=== PATIENT | female | born 1985 | race Caucasian/White ===

== ENCOUNTER 2020-09-13 11:40 | Outpatient (REF) | payer OTHER, SELFPAY ==
[2020-09-13 14:01] LABS: MANUAL DIFF FLAG NO
[2020-09-13 14:12] LABS: Basophils Absolute Auto 0.1 X10*3/uL (0.0-0.2); Basophils Percent Auto 0.6 % (0-2); Eosinophils Absolute Auto 0.3 X10*3/uL (0.0-0.4); Eosinophils Percent Auto 3.2 % (0-4); Hematocrit 42.2 % (37-47); Hemoglobin 13.8 g/dl (12.0-16.0); Imm Gran Abs Auto 0.03 X10*3/uL (0.00-0.03); Imm Gran Pct Auto 0.3 % (0.0-0.4); Lymphocytes Absolute Auto 2.8 X10*3/uL (1.2-4.9); Lymphocytes Percent Auto 30.3 % (20-40); Mean Corpuscular HGB Conc 32.7 g/dl (31.0-35.0); Mean Corpuscular Volume 88.7 fL (80-98); Mean Platelet Volume 10.7 fL (9.4-12.3); Monocytes Absolute Auto 0.6 X10*3/uL (0.1-1.2); Monocytes Percent Auto 6.5 % (2-11); Neutrophils Absolute Auto 5.5 X10*3/uL (2.0-8.3); Neutrophils Percent Auto 59.1 % (45-73); Platelet Count 380 X10*3/uL (160-400); Red Blood Count 4.76 X10*6/uL (4.20-5.50); Red Cell Distribution Width 14.4 % (11.0-16.0); White Blood Count 9.3 X10*3/uL (4.8-10.8)
[2020-09-13 14:41] LABS: Alanine Aminotransferase 14 U/L (0-31); Albumin Level 4.1 g/dL (3.5-5.0); Alkaline Phosphatase 74 U/L (39-117); Anion Gap 14 (12-20); Aspartate Amino Transferase 16 U/L (5-31); Bilirubin Direct < 0.2 mg/dL (0.0-0.5); Bilirubin Total 0.2 mg/dL (0.0-1.0); Blood Urea Nitrogen 14 mg/dL (9-16); Calcium 9.1 mg/dL (8.4-10.2); Carbon Dioxide 25 mmol/L (22-29); Chloride 106 mmol/L (96-108); Estimated Glomerular Filt Rate > 60; Glucose Random 77 mg/dL (60-115); Potassium 4.2 mmol/L (3.3-5.1); Sodium 141 mmol/L (135-145); Total Protein 7.1 g/dL (6.5-8.0)
== END 2020-09-13 11:41 | disposition home or self-care (01) ==
LOC: HO.HMGCLDS 11:40
PROVIDERS: PCP Internal Medicine; Visit Provider Internal Medicine
DX: E66.01 Morbid (severe) obesity due to excess calories (principal); Z68.41 Body mass index [BMI] 40.0-44.9, adult
CPT/HCPCS: 36415; 80048; 80076; 85025

== ENCOUNTER 2021-01-17 08:55 | Outpatient (REF) | payer OTHER, SELFPAY ==
[2021-01-17 11:29] LABS: MANUAL DIFF FLAG NO
[2021-01-17 11:38] LABS: Basophils Absolute Auto 0.1 X10*3/uL (0.0-0.2); Basophils Percent Auto 0.7 % (0-2); Eosinophils Absolute Auto 0.3 X10*3/uL (0.0-0.4); Eosinophils Percent Auto 3.6 % (0-4); Hematocrit 43.1 % (37-47); Hemoglobin 13.7 g/dl (12.0-16.0); Imm Gran Abs Auto 0.04 X10*3/uL (0.00-0.03); Imm Gran Pct Auto 0.4 % (0.0-0.4); Lymphocytes Absolute Auto 2.8 X10*3/uL (1.2-4.9); Lymphocytes Percent Auto 30.6 % (20-40); Mean Corpuscular HGB Conc 31.8 g/dl (31.0-35.0); Mean Corpuscular Hemoglobin 28.2 pg (27.0-33.0); Mean Corpuscular Volume 88.7 fL (80-98); Mean Platelet Volume 10.4 fL (9.4-12.3); Monocytes Absolute Auto 0.6 X10*3/uL (0.1-1.2); Monocytes Percent Auto 6.8 % (2-11); Neutrophils Absolute Auto 5.3 X10*3/uL (2.0-8.3); Neutrophils Percent Auto 57.9 % (45-73); Platelet Count 330 X10*3/uL (160-400); Red Blood Count 4.86 X10*6/uL (4.20-5.50); Red Cell Distribution Width 14.2 % (11.0-16.0); White Blood Count 9.1 X10*3/uL (4.8-10.8)
[2021-01-17 12:04] LABS: Alanine Aminotransferase 14 U/L (0-31); Albumin Level 4.2 g/dL (3.5-5.0); Alkaline Phosphatase 71 U/L (39-117); Anion Gap 13 (12-20); Aspartate Amino Transferase 14 U/L (5-31); Bilirubin Total 0.3 mg/dL (0.0-1.0); Blood Urea Nitrogen 14 mg/dL (9-16); Calcium 9.3 mg/dL (8.4-10.2); Carbon Dioxide 24 mmol/L (22-29); Chloride 108 mmol/L (96-108); Cholesterol 204 mg/dL; Estimated Glomerular Filt Rate > 60; Glucose Fasting 81 mg/dL (60-99); HDL Cholesterol 63 mg/dL; LDL Cholesterol Calculated 107 mg/dl; Potassium 4.7 mmol/L (3.3-5.1); Sodium 140 mmol/L (135-145); Total Protein 7.2 g/dL (6.5-8.0); Triglycerides 171 mg/dL
[2021-01-17 12:14] LABS: TSH reflex Free T4 1.63 uIU/mL (0.32-4.0)
[2021-01-18 15:03] LABS: Vitamin B12 271 pg/mL (200-900)
[2021-01-22 16:01] LABS: Vitamin D 25-OH, D2 <4 ng/mL; Vitamin D 25-OH, D3 35 ng/mL; Vitamin D 25-OH, Total 35 ng/mL (30-100)
== END 2021-01-17 08:56 | disposition home or self-care (01) ==
LOC: HO.HMGCLDS 08:55
PROVIDERS: PCP Internal Medicine; Visit Provider Internal Medicine
DX: E66.01 Morbid (severe) obesity due to excess calories (principal); G56.03 Carpal tunnel syndrome, bilateral upper limbs; M54.5 Low back pain
CPT/HCPCS: 36415; 80053; 80061; 82306; 82607; 84443; 85025

== ENCOUNTER → 2021-01-21 08:27 | Outpatient (BNVA) | payer OTHER, SELFPAY | PROVIDERS: PCP Internal Medicine; Visit Provider Physician Assistant ==

== ENCOUNTER → 2021-01-29 08:02 | Outpatient (BNVA) | payer OTHER, SELFPAY | PROVIDERS: PCP Internal Medicine; Visit Provider Surgery ==

== ENCOUNTER 2021-02-11 09:56 | Outpatient (REF) | payer OTHER, SELFPAY ==
--- NOTE | ~2021-02-11 | XR_ITS ---
EXAMINATION: XR CHEST CLINICAL INFORMATION: Obesity COMPARISON: None TECHNIQUE: 2 views of the chest were obtained. FINDINGS: No significant abnormality is noted involving the heart, lungs, mediastinum, bony thorax or soft tissues. XR/XR chest 2V IMPRESSION: Unremarkable examination.
[2021-02-11 10:50] LABS: MANUAL DIFF FLAG NO
[2021-02-11 10:58] LABS: Basophils Percent Auto 0.5 % (0-2); Eosinophils Absolute Auto 0.2 X10*3/uL (0.0-0.4); Eosinophils Percent Auto 2.7 % (0-4); Hematocrit 42.1 % (37-47); Hemoglobin 13.6 g/dl (12.0-16.0); Imm Gran Abs Auto 0.02 X10*3/uL (0.00-0.03); Imm Gran Pct Auto 0.3 % (0.0-0.4); Lymphocytes Absolute Auto 2.3 X10*3/uL (1.2-4.9); Mean Corpuscular HGB Conc 32.3 g/dl (31.0-35.0); Mean Corpuscular Hemoglobin 28.2 pg (27.0-33.0); Mean Corpuscular Volume 87.3 fL (80-98); Mean Platelet Volume 10.2 fL (9.4-12.3); Monocytes Absolute Auto 0.5 X10*3/uL (0.1-1.2); Neutrophils Absolute Auto 4.7 X10*3/uL (2.0-8.3); Neutrophils Percent Auto 60.5 % (45-73); Platelet Count 306 X10*3/uL (160-400); Red Blood Count 4.82 X10*6/uL (4.20-5.50); Red Cell Distribution Width 13.7 % (11.0-16.0); White Blood Count 7.8 X10*3/uL (4.8-10.8)
--- NOTE | 2021-02-11 11:25 | ECG_ITS ---
Test Reason : MORBID OBESITY Blood Pressure : / mmHG Vent. Rate : 076 BPM Atrial Rate : 076 BPM P-R Int : 104 ms QRS Dur : 084 ms QT Int : 398 ms P-R-T Axes : 036 034 001 degrees QTc Int : 447 ms Sinus rhythm with short [place] Nonspecific ST abnormality Abnormal ECG No previous ECGs available Referred By: Jak March Electronically Signed By:JERRY BIGGS
[2021-02-11 11:31] LABS: Alanine Aminotransferase 25 U/L (0-31); Albumin Level 4.3 g/dL (3.5-5.0); Alkaline Phosphatase 62 U/L (39-117); Anion Gap 12 (12-20); Aspartate Amino Transferase 20 U/L (5-31); Bilirubin Total 0.3 mg/dL (0.0-1.0); Blood Urea Nitrogen 11 mg/dL (9-16); C Reactive Protein 2.72 mg/dL (< or = 0.50); Calcium 9.4 mg/dL (8.4-10.2); Carbon Dioxide 24 mmol/L (22-29); Chloride 110 mmol/L (96-108); Cholesterol 168 mg/dL; Estimated Glomerular Filt Rate > 60; Glucose Random 80 mg/dL (60-115); HDL Cholesterol 54 mg/dL; Iron 107 mcg/dL (30-160); LDL Cholesterol Calculated 99 mg/dl; Percent Iron Saturation 22 % (15-50); Potassium 4.3 mmol/L (3.3-5.1); Sodium 142 mmol/L (135-145); Total Iron Binding Capacity 486 mcg/dL (228-428); Total Protein 7.1 g/dL (6.5-8.0); Triglycerides 78 mg/dL; Unsaturated Iron Binding 379 ug/dL
[2021-02-11 11:43] LABS: Ferritin 34 ng/mL (10-122); TSH reflex Free T4 0.84 uIU/mL (0.32-4.0); Vitamin D 25-OH Total 37.8 ng/mL (>30)
[2021-02-11 12:18] LABS: Folate 16.6 ng/mL (> or = 4.0); Vitamin B12 334 pg/mL (200-900)
[2021-02-11 13:20] LABS: Estimated Average Glucose 97 mg/dL
[2021-02-13 14:01] LABS: H Pylori Breath Test NOT DETECTED (NOT DETECTED)
[2021-02-13 21:17] LABS: Zinc 68 mcg/dL (60-130)
[2021-02-14 23:16] LABS: Insulin Level Total 9.8 uIU/mL
[2021-02-15 10:06] LABS: Vitamin B1 9 nmol/L (8-30)
[2021-02-16 06:31] LABS: Calcium (PTHI) 9.4 mg/dL (8.6-10.2); PTHI 58 pg/mL (14-64)
[2021-02-18 20:22] LABS: Vitamin A 63 mcg/dL (38-98)
== END 2021-02-11 09:57 | disposition home or self-care (01) ==
LOC: HO.LAB 09:56
PROVIDERS: PCP Internal Medicine; Visit Provider Surgery
DX: Z01.818 Encounter for other preprocedural examination (principal); E66.01 Morbid (severe) obesity due to excess calories; K21.9 Gastro-esophageal reflux disease without esophagitis
CPT/HCPCS: 36415; 71046; 80053; 80061; 82306; 82607; 82728; 82746; 83013; 83036; 83525; 83540; 83970; 84425; 84443; 84590; 84630; 85025; 86140; 93005

== ENCOUNTER → 2021-02-21 08:12 | Outpatient (BNVA) | payer OTHER, SELFPAY | PROVIDERS: PCP Internal Medicine; Visit Provider Surgery ==

== ENCOUNTER → 2021-02-27 08:13 | Outpatient (REF) | payer OTHER, SELFPAY ==
--- NOTE | ~2021-02-27 | FL_ITS ---
EXAMINATION: XR GI SERIES CLINICAL INFORMATION: Morbid/severe obesity due to excess calories. COMPARISON: None TECHNIQUE: Routine upper GI air-contrast study. FINDINGS: Following oral administration of thick barium and effervescent granules there is normal propagation of bolus from the oral cavity through the pharynx, esophagus into stomach without any evidence of obstruction, narrowing or stricture. The course, caliber and peristalsis of the stomach and the duodenum is normal. The mucosal pattern of stomach and the duodenum is normal. FLUOROSCOPY TIME: 1.4 minutes. DOSE AREA PRODUCT: 33.014 uGy-m2 (microgray-meter squared). FL/FL upper GI series IMPRESSION: Unremarkable upper GI air-contrast study.
--- NOTE | ~2021-02-27 | US_ITS ---
EXAMINATION: US COMPLETE ABDOMEN WITH LIVER ELASTOGRAPHY CLINICAL INFORMATION: Obesity COMPARISON: None. TECHNIQUE: Real-time imaging of the abdominal viscera. Noninvasive ultrasound liver fibrosis assessment is performed using Radha ElastPQ point quantification shear wave elastography (pSWE) with a C5-2 MHz transducer. Multiple elastography samples are obtained. FINDINGS: PANCREAS: Normal. ABDOMINAL AORTA: Not well visualized due to bowel gas. INFERIOR VENA CAVA: Not well visualized due to bowel gas. LIVER: Normal. The liver demonstrates normal size, contour and echogenicity. No focal lesion or intrahepatic biliary duct dilatation. The right lobe measures 14 cm in length. The left lobe measures 9 cm in length. Portal flow is normal/hepatopedal Shear wave liver elastography median stiffness is 1.2 m/s (reference: normal median stiffness is 1.3 m/s or less). IQR/median stiffness to assess sampling precision is 0.13 (reference: good quality data set is IQR/median stiffness of 0.15 or less). GALLBLADDER: Surgically removed. COMMON BILE DUCT: Normal in caliber measuring 0.3 cm in diameter. RIGHT KIDNEY: Normal. No hydronephrosis. No renal calculi or focal parenchymal lesions. The kidney measures 10 cm in maximum dimension. LEFT KIDNEY: Normal. No hydronephrosis. No renal calculi or focal parenchymal lesions. The kidney measures 10 cm in maximum dimension. SPLEEN: Normal. The spleen measures 9 cm in maximum dimension. FREE FLUID: None. US/US abdomen comp w elastography IMPRESSION: 1. Impression: Normal-appearing liver. Limited visualization of the aorta and IVC. 2. Liver elastography: Adequate liver sampling. Normal liver stiffness. REFERENCE: Society of Radiologists in Ultrasound Liver Stiffness Thresholds (2020): LIVER STIFFNESS THRESHOLDS: *Liver Stiffness equal or less than 1.3 m/s: High probability of being normal. *Liver Stiffness less than 1.7 m/s: In the absence of other known clinical signs, rules out compensated advanced chronic liver disease. *Liver Stiffness 1.7-2.1 m/s: Suggestive of compensated advanced chronic liver disease but need further test for confirmation. *Liver Stiffness over 2.1 m/s: Rules in compensated advanced chronic liver disease. *Liver Stiffness over 2.4 m/s: Suggestive of clinically significant portal hypertension. QUALITY OF DATA SET: *IQR/Median value equal or less than 0.15 implies a quality data set. *IQR/Median value over 0.15 implies a poor quality data set. SIGNIFICANT CHANGE FROM PRIOR EXAM: Significant change if liver stiffness measurement is 10% or greater from prior exam. OTHER CONSIDERATIONS: The stage of liver fibrosis may be overestimated in the setting of acute hepatitis, liver inflammation, elevated liver function tests, hepatic vascular congestion, obstructive cholestasis, non-fasting state, and infiltrative diseases such as amyloidosis and lymphoma. In some patients with NAFLD, the liver stiffness thresholds for compensated advanced chronic liver disease may be lower. In causes other than viral hepatitis and NAFLD, liver stiffness thresholds are not well established.
--- NOTE | 2021-02-27 08:16 | CA_ITS ---
Acquisition Time: 2021-02-27 08:15:46 Total Exercise Time: 00:09:00 Test Indications: Abnormal ECG Medications: BUPROPION LORAZAPAM BC Protocol: KLARISSA Max HR: 171 BPM 91% of Pred: 186 BPM Max BP: 130/080 mmHG Max Work Load: 10.1 METS Exercise stress test with exercise 9 min of Klarissa protocol, without anginal symptoms, without arrythmia, with normotensive response to exercise, without EKG changes meeting criteria for ischemia. Test reviewed with Dr Parker Referred By: Jak March Overread By: ARNULFO ZUNIGA
== END ==
LOC: HO.CARD 08:13
PROVIDERS: Visit Provider Surgery
DX: Z01.818 Encounter for other preprocedural examination (principal); E66.01 Morbid (severe) obesity due to excess calories; K21.9 Gastro-esophageal reflux disease without esophagitis; R06.02 Shortness of breath; I10 Essential (primary) hypertension; R94.31 Abnormal electrocardiogram [ECG] [EKG]
CPT/HCPCS: 74240; 76705; 76981; 93017

== ENCOUNTER → 2021-02-28 08:09 | Outpatient (BNVA) | payer OTHER, SELFPAY | PROVIDERS: PCP Internal Medicine; Visit Provider Dietitian, Registered | DX: E66.9 Obesity, unspecified (principal) | CPT/HCPCS: 97802 ==

== ENCOUNTER → 2021-03-19 08:11 | Outpatient (BNVA) | payer OTHER, SELFPAY | PROVIDERS: PCP Internal Medicine; Visit Provider Surgery ==

== ENCOUNTER → 2021-04-16 10:23 | Outpatient (BNVA) | payer OTHER, SELFPAY | PROVIDERS: PCP Internal Medicine; Visit Provider Surgery ==

== ENCOUNTER → 2021-04-25 08:10 | Outpatient (BNVA) | payer OTHER, SELFPAY | PROVIDERS: PCP Internal Medicine; Referring Provider Internal Medicine; Visit Provider Physician Assistant ==

== ENCOUNTER → 2021-05-07 08:03 | Outpatient (BNVA) | payer OTHER, SELFPAY | PROVIDERS: PCP Internal Medicine; Visit Provider Surgery ==

== ENCOUNTER → 2021-05-16 12:34 | Outpatient (BNVA) | payer OTHER, SELFPAY | PROVIDERS: PCP Internal Medicine; Visit Provider Surgery | DX: E66.01 Morbid (severe) obesity due to excess calories (principal); Z68.41 Body mass index [BMI] 40.0-44.9, adult; Z68.36 Body mass index [BMI] 36.0-36.9, adult ==

== ENCOUNTER 2021-05-22 08:32 | Day surgery (SDC) | payer OTHER, SELFPAY ==
[2021-05-13 11:03] VITALS: BMI 36.7
[2021-05-17 09:15] LABS: MANUAL DIFF FLAG NO
[2021-05-17 10:12] LABS: Basophils Absolute Auto 0.1 X10*3/uL (0.0-0.2); Basophils Percent Auto 0.7 % (0-2); Eosinophils Absolute Auto 0.2 X10*3/uL (0.0-0.4); Eosinophils Percent Auto 2.2 % (0-4); Hematocrit 44.6 % (37.0-47.0); Imm Gran Abs Auto 0.03 X10*3/uL (0.00-0.03); Imm Gran Pct Auto 0.4 % (0.0-0.4); Lymphocytes Absolute Auto 1.9 X10*3/uL (1.2-4.9); Lymphocytes Percent Auto 28.1 % (20-40); Mean Corpuscular HGB Conc 33.6 g/dl (31.0-35.0); Mean Corpuscular Hemoglobin 29.4 pg (27.0-33.0); Mean Corpuscular Volume 87.5 fL (80.0-98.0); Mean Platelet Volume 10.6 fL (9.4-12.3); Monocytes Absolute Auto 0.5 X10*3/uL (0.1-1.2); Monocytes Percent Auto 7.4 % (2-11); Neutrophils Absolute Auto 4.1 x10*3/uL (2.0-8.3); Neutrophils Percent Auto 61.2 % (45-73); Platelet Count 333 X10*3/uL (160-400); Red Cell Distribution Width 13.4 % (11.0-16.0); White Blood Count 6.7 X10*3/uL (4.8-10.8)
[2021-05-17 10:44] LABS: Estimated Average Glucose 103 mg/dL; Hemoglobin A1c % 5.2 %
[2021-05-17 10:46] LABS: Prothrombin Time 11.5 SEC (9.9-13.0)
[2021-05-17 10:49] LABS: Partial Thromboplastin Time 35.6 SEC (24.1-38.0)
[2021-05-17 11:02] LABS: Alanine Aminotransferase 20 U/L (0-31); Albumin Level 4.3 g/dL (3.5-5.0); Alkaline Phosphatase 67 U/L (39-117); Anion Gap 14 (12-20); Aspartate Amino Transferase 16 U/L (5-31); Bilirubin Total 0.3 mg/dL (0.0-1.0); Blood Urea Nitrogen 14 mg/dL (9-16); C Reactive Protein 2.82 mg/dL (< or = 0.50); Calcium 9.6 mg/dL (8.4-10.2); Carbon Dioxide 25 mmol/L (22-29); Chloride 106 mmol/L (96-108); Cholesterol 190 mg/dL; Estimated Glomerular Filt Rate > 60; Glucose Random 86 mg/dL (60-115); HDL Cholesterol 51 mg/dL; LDL Cholesterol Calculated 125 mg/dl; Potassium 4.6 mmol/L (3.3-5.1); Sodium 140 mmol/L (135-145); Total Protein 7.2 g/dL (6.5-8.0); Triglycerides 72 mg/dL
[2021-05-17 11:10] LABS: Insulin 10 uU/mL (2-29); TSH reflex Free T4 0.76 uIU/mL (0.32-4.0)
--- NOTE | 2021-05-17 20:32 | P.HPSUR_ITS ---
Pre-Procedural Eval Section A Date of Service: 05/17/21 The patient is an INPATIENT: No The History & Physical has been completed within 30 days and I have reviewed it.: Yes Section B Chief Complaint: obesity Relevant Family History (Specify if Yes): No Relevant Social History: None Present Medications: None Medical History: No relevant PMH History of Previous Operations: No relevant previous surgery Allergies: Allergies Allergy/AdvReac Type Severity Reaction Status Date / Time egg Allergy Unknown Lump in Verified 05/16/21 12:37 Throa t seasonal Allergy Unknown Runny Uncoded 05/16/21 12:37 Nose, Itchy Eyes Review of Systems Sugical H&P ROS: Negative: Constitution, Cardiovascular, Respiratory, Neurological, Psychiatric, Hem-Onc, Allergic/Immunologic, Gastrointestinal, Genitourinary, Musculoskeletal, Integumentary, Endocrine and Eyes/Ears/Nose/Throat Exam Surgical H&P Exam: Normal: HEENT, Normal: Heart, Normal: Lungs, Normal: Extrem ities, Normal: Abdomen, Normal: Skin and Normal: Neurological Plan Diagnosis/Plan: Unchanged I have reviewed the history and physical and performed a pertinent physical examination on my patient. No changes have occurred unless specified.
--- NOTE | 2021-05-21 09:49 | P.CONAN_ITS ---
Documented by User: Arlene Wilson NP 05/21/21 09:51 HPI - Anesthesia Eval Consult details Narrative: 35yo F for Gastrectomy Sleeve,EGD,possible diaphragmatic hernia,possible ventral hernia,possible open PMFSH Active Problems Active Problems: All Active Problems (Updated 05/16/21 @ 12:34 by Jak March MD) BMI 36.0-36.9,adult (Acute) Uses control (Acute) Morbid obesity due to excess calories (Acute) Carpal tunnel syndrome on both sides (Acute) Lower back pain (Acute) Binge eating disorder (Acute) Other specified eating disorder (Acute) Abnormal EKG (Acute) Vitamin B12 deficiency (Acute) BMI 38.0-38.9,adult (Acute) BMI 37.0-37.9, adult (Acute) Nausea (Acute) BMI 35.0-35.9,adult (Acute) Back pain (Acute) Anxiety (Acute) GERD (gastroesophageal reflux disease) (Acute) Depression (Acute) Morbid obesity (Acute) Anxiety, generalized (Acute) Obesity (Acute) Past Medical History Medical History (Updated 05/16/21 @ 12:34 by Jak March MD) Anxiety Back pain Depression GERD (gastroesophageal reflux disease) Morbid obesity Family History Family History (Updated 01/21/21 @ 08:45 by ANNIKA Hurtado) Mother Spinal stenosis Ovarian cancer Father No problems noted. Brother No problems noted. Sister No problems noted. Son No problems noted. Daughter No problems noted. Other Mental health disorder Substance use disorder Surgical History Surgical History Hx of cholecystectomy Hx of wisdom tooth extraction Social History Social History (Updated 01/29/21 @ 08:45 by ANNIKA Hurtado) Housing: Apartment Are you a primary career technology teacher to a significant other at home: No Do you presently have visiting nurse or other home services: No Alcohol intake: current Alcohol intake frequency: holidays/special occasions only Patient Tobacco Use Status: Never used Tobacco Second Hand Smoke Exposure: Yes Use of substances other than those prescribed or required for medical reasons: No Are you DNR?: No Advance Directives: No Advance Directives Information Provided: Yes (Mailed to patient w/ pre-op instructions) Advance Directives on File: No Recently lost weight without trying: No How much weight loss: 14-23 pounds Eating poorly because of decreased appetite: No Nutrition screen score: 2 Nutrition Risks: No Nutritional Risk Patient : No FDLMP: due 05/14/21 : No Current occupational status: employed Meds Allergies Allergy/AdvReac Type Severity Reaction Status Date / Time egg Allergy Unknown Lump in Verified 05/22/21 08:48 Throa t seasonal Allergy Unknown Runny Uncoded 05/16/21 12:37 Nose, Itchy Eyes Home Medications Medication Instructions Recorded Confirmed Last Taken Type lorazepam 0.5 mg tablet 0.5 mg PO DAILY PRN 03/15/20 05/16/21 05/22/21 08:00 History norethindrone acetate 1.5 1 tab PO DAILY 03/15/20 05/16/21 Unknown History mg-ethinyl estradiol 30 mcg tablet bupropion HCl 150 mg 24 hr tablet, 1 tab PO DAILY 05/13/21 05/16/21 05/22/21 08:00 History extended release cetirizine 10 mg tablet (Zyrtec) 10 mg PO DAILY PRN 05/13/21 05/16/21 Unknown History Exam Exam Date and Time: May 21, 2021 0949 Height,Weight and Vital Signs: Height 4 ft 11 in Weight 82.554 kg Pertinent Lab Results Pertinent Lab Results: Laboratory Tests 05/17/21 05/17/21 05/17/21 09:09 09:09 09:09 WBC 6.7 RBC 5.10 Hgb 15.0 Hct 44.6 MCV 87.5 MCH 29.4 MCHC 33.6 RDW 13.4 Plt Count 333 MPV 10.6 Immature Gran % (Auto) 0.4 Neut % (Auto) 61.2 Lymph % (Auto) 28.1 Sherman % (Auto) 7.4 Eos % (Auto) 2.2 Baso % (Auto) 0.7 Lymph # (Auto) 1.9 Sherman # (Auto) 0.5 Eos # (Auto) 0.2 Baso # (Auto) 0.1 Abs Immat Gran (auto) 0.03 Absolute Neuts (auto) 4.1 Absolute Nucleated RBC 0.000 Nucleated RBC % (auto) 0.0 PT 11.5 INR 1.0 APTT 35.6 Sodium 140 Potassium 4.6 Chloride 106 Carbon Dioxide 25 Anion Gap 14 BUN 14 Creatinine 0.81 Estim Creat Clear Calc 91.0 Estimated GFR > 60 Random Glucose 86 Estimat Average Glucose Hemoglobin A1c % Insulin Level 10 Calcium 9.6 Total Bilirubin 0.3 AST 16 ALT 20 Alkaline Phosphatase 67 C-Reactive Protein 2.82 H Total Protein 7.2 Albumin 4.3 Triglycerides 72 Cholesterol 190 LDL Cholesterol, Calc 125 HDL Cholesterol 51 TSH 0.76 Blood Type Antibody Screen 05/17/21 05/17/21 09:09 09:09 WBC RBC Hgb Hct MCV MCH MCHC RDW Plt Count MPV Immature Gran % (Auto) Neut % (Auto) Lymph % (Auto) Sherman % (Auto) Eos % (Auto) Baso % (Auto) Lymph # (Auto) Sherman # (Auto) Eos # (Auto) Baso # (Auto) Abs Immat Gran (auto) Absolute Neuts (auto) Absolute Nucleated RBC Nucleated RBC % (auto) PT INR APTT Sodium Potassium Chloride Carbon Dioxide Anion Gap BUN Creatinine Estim Creat Clear Calc Estimated GFR Random Glucose Estimat Average Glucose 103 Hemoglobin A1c % 5.2 Insulin Level Calcium Total Bilirubin AST ALT Alkaline Phosphatase C-Reactive Protein Total Protein Albumin Triglycerides Cholesterol LDL Cholesterol, Calc HDL Cholesterol TSH Blood Type A Positive Antibody Screen NEGATIVE Narrative Narrative: EKG 02/2021 Vent. Rate : 076 BPM ? ? Atrial Rate : 076 BPM ?? P-R Int : 104 ms? QRS Dur : 084 ms ? ? QT Int : 398 ms ? ? ? P-R-T Axes : 036 034 001 degrees ?? QTc Int : 447 ms ? Sinus rhythm with short NC Nonspecific ST abnormality Abnormal ECG No previous ECGs available Exercise Stress 02/2021 Protocol: MICHAEL ? Max HR: 171 BPM? 91% of? Pred: 186 BPM Max BP: 130/080 mmHG Max Work Load: 10.1 METS ? Exercise stress test with exercise 9 min of Michael protocol, without anginal ?symptoms, without arrythmia, with normotensive response to exercise, without ?EKG changes meeting criteria for ischemia. Test reviewed with Dr Parker Assessment and Plan Assessment Anesthesia Assessment: Chart Reviewed Documented by User: Anna Boston MD 05/22/21 09:41 HPI - Anesthesia Eval Consult details Narrative: 35yo F for Gastrectomy Sleeve,EGD,possible diaphragmatic hernia,possible ventral hernia,possible open Egg allergy confirmed. Will induce with etomidate PMFSH Active Problems Active Problems: All Active Problems (Updated 05/16/21 @ 12:34 by Jak March MD) BMI 36.0-36.9,adult (Acute) Uses control (Acute) Morbid obesity due to excess calories (Acute) Carpal tunnel syndrome on both sides (Acute) Lower back pain (Acute) Binge eating disorder (Acute) Other specified eating disorder (Acute) Abnormal EKG (Acute) Vitamin B12 deficiency (Acute) BMI 38.0-38.9,adult (Acute) BMI 37.0-37.9, adult (Acute) Nausea (Acute) BMI 35.0-35.9,adult (Acute) Anxiety (Acute) GERD (gastroesophageal reflux disease) (Acute) Depression (Acute) Denies h/o SVITLANA Past Medical History Medical History (Updated 05/16/21 @ 12:34 by Jak March MD) Anxiety Back pain Depression GERD (gastroesophageal reflux disease) Morbid obesity Family History Family History (Updated 01/21/21 @ 08:45 by ANNIKA Hurtado) Mother Spinal stenosis Ovarian cancer Father No problems noted. Brother No problems noted. Sister No problems noted. Son No problems noted. Daughter No problems noted. Other Mental health disorder Substance use disorder Family history of problems with anesthesia: No Surgical History Surgical History Hx of cholecystectomy Hx of wisdom tooth extraction History of Problems with Anesthesia: No Social History Social History (Updated 01/29/21 @ 08:45 by ANNIKA Hurtado) Housing: Apartment Are you a primary career technology teacher to a significant other at home: No Do you presently have visiting nurse or other home services: No Alcohol intake: current Alcohol intake frequency: holidays/special occasions only Patient Tobacco Use Status: Never used Tobacco Second Hand Smoke Exposure: Yes Use of substances other than those prescribed or required for medical reasons: No Are you DNR?: No Advance Directives: No Advance Directives Information Provided: Yes (Mailed to patient w/ pre-op instructions) Advance Directives on File: No Recently lost weight without trying: No How much weight loss: 14-23 pounds Eating poorly because of decreased appetite: No Nutrition screen score: 2 Nutrition Risks: No Nutritional Risk Patient : No FDLMP: due 05/14/21 : No Current occupational status: employed Meds Allergies Allergy/AdvReac Type Severity Reaction Status Date / Time egg Allergy Unknown Lump in Verified 05/22/21 08:48 Throa t seasonal Allergy Unknown Runny Uncoded 05/16/21 12:37 Nose, Itchy Eyes Home Medications Medication Instructions Recorded Confirmed Last Taken Type lorazepam 0.5 mg tablet 0.5 mg PO DAILY PRN 03/15/20 05/16/21 05/22/21 08:00 History norethindrone acetate 1.5 1 tab PO DAILY 03/15/20 05/16/21 Unknown History mg-ethinyl estradiol 30 mcg tablet bupropion HCl 150 mg 24 hr tablet, 1 tab PO DAILY 05/13/21 05/16/21 05/22/21 08:00 History extended release cetirizine 10 mg tablet (Zyrtec) 10 mg PO DAILY PRN 05/13/21 05/16/21 Unknown History Exam Height,Weight and Vital Signs: Height 4 ft 11 in Weight 82.554 kg Vital Signs Temp Pulse Resp BP Pulse Ox 05/22/21 08:54 98.4 F 118 H 16 106/81 98 Pertinent Lab Results Pertinent Lab Results: Laboratory Tests 05/17/21 05/17/21 05/17/21 09:09 09:09 09:09 WBC 6.7 RBC 5.10 Hgb 15.0 Hct 44.6 MCV 87.5 MCH 29.4 MCHC 33.6 RDW 13.4 Plt Count 333 MPV 10.6 Immature Gran % (Auto) 0.4 Neut % (Auto) 61.2 Lymph % (Auto) 28.1 Sherman % (Auto) 7.4 Eos % (Auto) 2.2 Baso % (Auto) 0.7 Lymph # (Auto) 1.9 Sherman # (Auto) 0.5 Eos # (Auto) 0.2 Baso # (Auto) 0.1 Abs Immat Gran (auto) 0.03 Absolute Neuts (auto) 4.1 Absolute Nucleated RBC 0.000 Nucleated RBC % (auto) 0.0 PT 11.5 INR 1.0 APTT 35.6 Sodium 140 Potassium 4.6 Chloride 106 Carbon Dioxide 25 Anion Gap 14 BUN 14 Creatinine 0.81 Estim Creat Clear Calc 91.0 Estimated GFR > 60 Random Glucose 86 Estimat Average Glucose Hemoglobin A1c % Insulin Level 10 Calcium 9.6 Total Bilirubin 0.3 AST 16 ALT 20 Alkaline Phosphatase 67 C-Reactive Protein 2.82 H Total Protein 7.2 Albumin 4.3 Triglycerides 72 Cholesterol 190 LDL Cholesterol, Calc 125 HDL Cholesterol 51 TSH 0.76 Blood Type Antibody Screen 05/17/21 05/17/21 09:09 09:09 WBC RBC Hgb Hct MCV MCH MCHC RDW Plt Count MPV Immature Gran % (Auto) Neut % (Auto) Lymph % (Auto) Sherman % (Auto) Eos % (Auto) Baso % (Auto) Lymph # (Auto) Sherman # (Auto) Eos # (Auto) Baso # (Auto) Abs Immat Gran (auto) Absolute Neuts (auto) Absolute Nucleated RBC Nucleated RBC % (auto) PT INR APTT Sodium Potassium Chloride Carbon Dioxide Anion Gap BUN Creatinine Estim Creat Clear Calc Estimated GFR Random Glucose Estimat Average Glucose 103 Hemoglobin A1c % 5.2 Insulin Level Calcium Total Bilirubin AST ALT Alkaline Phosphatase C-Reactive Protein Total Protein Albumin Triglycerides Cholesterol LDL Cholesterol, Calc HDL Cholesterol TSH Blood Type A Positive Antibody Screen NEGATIVE Laboratory Results - last 24 hr 05/22/21 05/22/21 08:40 08:40 Urine Test NEGATIVE COVID-19 ([facility]) Negative COVID-19 Clin Com See Note Airway Mallampati Class: I TM Dist: >3cm Neck ROM: Full Loose/Missing/Broken Teeth: No (3 crowns intact) Heart: RRR Lungs: CTAB Assessment and Plan Assessment Anesthesia Assessment: Anesthesia Plan Discussed Final Anesthetic Review Family History of Problems with Anesthesia: No History of Problems with Anesthesia: No NPO: Yes ASA Class: III Final Preanesthetic Review: No Changes in Pt Med Stat, Meds/Allgs Chart Reviewed, Consent Obtained/Reviewed and Anes Risks/Benef Reviewed Patient Risk: Intermediate Procedure Risk: Intermediate Assessment/Block/Sedation in SS: Assess/Block/Sedation-SS Anesthetic Plan Anesthetic Plan: GA and Agree w/ Assess. and Plan Disposition: Standard PACU and Inp. Admit - Standard Bed
[2021-05-22] VITALS (13 sets, daily range): BP systolic 106–139; BP diastolic 66–89; PULSE 98–118; RESP 16–18; TEMP 36.6–36.9; O2SAT 96–100
--- NOTE | 2021-05-22 09:07 | HE.PHANOTE ---
Spoke to RN, she will let MD know about egg allergy and propofol. Laurita Nolasco PharmD BCPS
[2021-05-22 09:08] LABS: UPreg QC Valid YES; Urine Pregnancy NEGATIVE (NEGATIVE)
[2021-05-22 09:28] LABS: COVID-19 Test Negative (Negative); IDNOW Serial# 55D5AD1C
[2021-05-22] MEDS: Lactated Ringers 1,000 ML 999 ML IV (10:10)
--- NOTE | 2021-05-22 10:14 | PC.NURSE ---
Pharmacy called regarding patients egg allergy and the possibility of having a propofol reaction. Dr. Pelaez aware.
[2021-05-22] MEDS: ceFAZolin Sodium/Dextrose,Iso 2 GM/50 ML PIGGYBACK IV ×2 (10:20→15:56)
--- NOTE | 2021-05-22 13:03 | P.BOP_ITS ---
Brief Operative Note Date of Service: 05/22/21 Pre-op diagnosis: Severe obesity and comorbidities (see below) Post-op diagnosis: same (& diaphragmatic hernia) Procedure: INITIAL PATIENT BMI ON PRESENTATION AT OUR OFFICE: 41.3 kg/m2 LAST BMI BEFORE SURGERY: 36.8 kg/m2 COMORBIDITIES: GERD, back pain, depression, anxiety The patient participated in an intensive weekly lifestyle ?intervention and exercise program during which the patient ?has lost between the initial office visit and the last preoperative visit 24.2 lbs, or 11.85% of initial actual body weight. The patient met the BMI-criteria for bariatric surgery based on the BMI on initial presentation. The patient should not be penalized for achieving such weight loss because ?it is not sustainable long-term without surgical intervention and it was achieved in preparation for bariatric surgery ?under my direction and based on my published research ([email or web address]).[email or web address] and? [email or web address]/article/[email or web address])26430-X/pdf ) ?that a 10% preoperative weight loss improves long-term weight loss after surgery and reduces perioperative complications.? Insurance carriers such as [facility] have endorsed my recommendations ?and have included in their policies criteria to include a 10% preoperative weight loss requirement. PROCEDURE: Esophago-gastroscopy, laparoscopic repair of incarcerated diaphragmatic hernia, laparoscopic sleeve gastrectomy and laparoscopic gastropexy INDICATIONS: This is a 35 year-old female who was electively scheduled for laparoscopic, possibly open sleeve gastrectomy. The risks and complications of the procedure were discussed with the patient in advance, particularly the possibility of ; pulmonary embolism; staple line leak; bleeding; GERD; cardiac, pulmonary, or renal complications; as well as long-term problems such as insufficient weight loss, vitamin deficiency, strictures, or ulcers. The patient understood all the risks, and was in agreement to proceed with surgery. DESCRIPTION OF PROCEDURE: After informed consent was obtained from the patient, the patient was given preoperative antibiotics, and was transferred to the operating room. After successful induction of general anesthesia, pneumatic compressive devices were placed on both lower extremities. An upper endoscopy was performed next. The oropharynx and esophagus appeared to be within normal limits. There was a diaphragmatic hernia present of moderate size which was not reported at the preoperative upper GI. The stomach was entered. Then after all fluid and air were suctioned and the stomach was fully decompressed, the scope was withdrawn and secured in the mid esophagus. The patient was then prepped and draped in the usual sterile manner, and abdominal access was established at the right upper quadrant with the Walter technique. A 12 mm blunt port was inserted, and the abdomen was insufflated with CO2 to a pressure of 15 mmHg. Under direct visualization, additional ports were placed, specifically two 5 mm Versi-step ports to the left upper quadrant, and a 5 mm Versi-Step port to the right upper quadrant. 1% lidocaine plain was used to infiltrate all port sites as well as all fascia defects. Using the EndoClose suture passer device, I placed a #1 Polysorb tie across the falciform ligament in order to retract it up against the abdominal wall and prevent injury of the ligament with our instruments during the procedure. Following that, the patient was placed in a steep reverse Trendelenburg position. An additional 5 mm port was placed to the right flank for the Mediflex retractor that was used to retract the left lobe of the liver. The gastro-esophageal fat pad was opened with the ultrasonic device (Thunderbeat, Olympus) and the anterior esophagus and hiatus were exposed. The angle of His was opened with the ultrasonic device the fundus of the stomach from any diaphragmatic and splenic attachments. I then opened the gastrocolic ligament between the transverse colon and the greater curvature of the stomach with the ultrasonic device to enter the lesser sac and facilitate the ligation of the short gastric vessels. I started at a mid-point along the greater curvature and using the Thunderbeat, all short gastric vessels were divided all the way to the angle of His until the left tim was completely dissected at its entirety. I then divided the gastro-colic ligament distally to a distance of about 3-4 cm proximal to the esophagus. There was an obvious significant-sized hiatal hernia. I continued dissecting along the hiatus toward the left tim and the angle of His. I fully mobilized the fat pad that was incarcerated in the hernia. I then continued by dissecting even further into the posterior retro-esophageal space all the way to the angle of His. I continued to mobilize the esophagus into the mediastinum circumferentially. Both vagal nerves were seen and preserved. At that point, I was able to have at least 3 to 5 cm of esophagus into the abdomen.? After I completely mobilized the esophagus from both the left and right tim and I had a good mobilization of the esophagus circumferentially, I closed the hernia defect with three interrupted #0 Surgidac sutures using the Endo Stitch device, two of which were placed posterior and one anterior to the esophagus. ? The stomach was then divided transversely with one Endo UMAIR-45 purple, one UMAIR- 45 orange, and four UMAIR-60 articulating orange loads using the AEON stapler and loads. Every effort was made that the gastric sleeve had a tubular shape and an even caliber throughout. Once the sleeve resection was completed, the staple line of the gastric sleeve was reinforced with Hemoclips. The resected stomach was retrieved without difficulty from the Walter port. A gastropexy was then performed in order to prevent postoperative GERD and partial gastric volvulus. Several interrupted 2.0 Surgidac sutures were placed between the sleeve's staple line and the previously divided greater omentum and gastro-colic ligament using the Endo-Stitch device. ?An upper endoscopy was performed. There was no narrowing at the GE junction. The scope was easily advanced all the way to the pylorus which was clearly visualized. There was no narrowing anywhere and the sleeve's caliber was even throughout. The sleeve's staple line was inspected and there was no evidence of ischemia, bleeding or dehiscence. At that point the gastroscope was withdrawn from the patient?s mouth while we were decompressing the bowel and the stomach from any remaining air. I looked into the lesser sac to see how the sleeve was situating and it was situating well. There was no bleeding from the staple line, spleen, or short gastric vessels. The Mediflex retractor was removed, and the undersurface of the liver was inspected and there was no bleeding. The patient was placed in supine position. I closed the fascial defect of the 12 mm port site with a figure of eight #1 Polysorb suture. Then 100 cc 0.25 % Marcaine plain with 10 mg of Dexamethasone were used to infiltrate the fascial closure as well as all skin incisions. At this point, the abdomen was deflated, all ports were removed under direct vision, and no bleeding was noted from any of the port sites. The skin incisions were irrigated with saline and were closed with 4-0 absorbable monofilament sutures. Steri-Strips and OpSites were used to cover all incisions. The patient was extubated and was transferred in stable condition to the recovery room for further care. I was present and performed all newman parts of the procedure. Ms. Quijano was the certified anesthesiologist assistant. There were no residents to assist with this case. Justo March MD, PhD, FACS Surgeon: Jak March MD Anesthesia: GETA, local and other (TAP block) Was an Field Secretary used for this Procedure?: Yes Field Secretary: Arcelia Quijano Estimated blood loss (mL): 20 IV fluids (mL): 3,100 Urine output (mL): 0 (No Stout to record) Pathology: other (Stomach) Condition: stable Disposition: PACU
--- NOTE | 2021-05-22 13:08 | P.PNGS_ITS ---
Subjective Subjective Date of Service: 05/23/21 Interval history: Patient has mild incisional pain, but was able to ambulate and use the incentive spirometer. She is tolerating phase 1 bariatric diet Physical Exam Vital Signs: Vital Signs: Last Vital Signs Temp 98.4 F 05/22/21 08:54 Pulse 118 H 05/22/21 08:54 Resp 16 05/22/21 08:54 BP 106/81 05/22/21 08:54 Pulse Ox 98 05/22/21 08:54 BMI result Body Mass Index 36.7 GI: Inspection: Yes normal to inspection, Yes incision (clean, dry and intact) and Yes obesity Extrem: Right lower extremity: normal to inspection (no calf tenderness) Left lower extremity: normal to inspection (no calf tenderness) Objective Data Active Medications Fentanyl (Fentanyl Citrate/Pf 100 Mcg/2 Ml Vial) 25 mcg IVPUSH Q5M PRN; Protocol PRN Reason: Pain, Moderate (Pain Scale 4-6 Hydromorphone HCl (Hydromorphone Hcl 0.5 Mg/0.5 Ml Syringe) 0.25 mg IVPUSH Q5M PRN; Protocol PRN Reason: Pain, Severe (Pain Scale 7-10) Lactated Ringer's (Lr) 1,000 mls @ 100 mls/hr IVCONT .Q10H DISHA Promethazine HCl 6.25 mg/ (Sodium Chloride) 50.25 mls @ 201 mls/hr IV ONCE PRN PRN Reason: Nausea and Vomiting Ondansetron HCl (Ondansetron Hcl 4 Mg/2 Ml Vial) 4 mg IVPUSH ONCE PRN PRN Reason: Nausea and Vomiting Labs CBC & Chem 7: 05/23/21 05:44 05/23/21 05:44 Labs: Laboratory Results - last 24 hr 05/22/21 05/22/21 08:40 08:40 Urine Test NEGATIVE COVID-19 ([facility]) Negative COVID-19 Clin Com See Note Procedures Date of Service Date of Service: 05/23/21 Progress Note: A&P Assessment and plan (1) S/P laparoscopic sleeve gastrectomy: Status: Acute Assessment and Plan: s/p laparoscopic sleeve gastrectomy, repair of diaphragmatic hernia, and ga stropexy Doing well Check am labs. If OK, will discharge home? (2) S/P repair of paraesophageal hernia: Status: Acute (3) Paraesophageal hernia: Status: Acute (4) Obesity: Status: Acute (5) BMI 36.0-36.9,adult: Status: Acute (6) GERD (gastroesophageal reflux disease): Status: Acute (7) Depression: Status: Acute (8) Anxiety: Status: Acute (9) Back pain: Status: Acute Fall Risk Details Current Medications: Current Medications Fentanyl (Fentanyl Citrate/Pf 100 Mcg/2 Ml Vial) 25 mcg IVPUSH Q5M PRN; Protocol PRN Reason: Pain, Moderate (Pain Scale 4-6 Hydromorphone HCl (Hydromorphone Hcl 0.5 Mg/0.5 Ml Syringe) 0.25 mg IVPUSH Q5M PRN; Protocol PRN Reason: Pain, Severe (Pain Scale 7-10) Lactated Ringer's (Lr) 1,000 mls @ 100 mls/hr IVCONT .Q10H DISHA Promethazine HCl 6.25 mg/ (Sodium Chloride) 50.25 mls @ 201 mls/hr IV ONCE PRN PRN Reason: Nausea and Vomiting Ondansetron HCl (Ondansetron Hcl 4 Mg/2 Ml Vial) 4 mg IVPUSH ONCE PRN PRN Reason: Nausea and Vomiting Time Spent With Patient Time: Total time spent is greater than 50% in coordination of care (as documented) at patient's floor/unit and/or counseling patient: Time with patient: less than 15 minutes Quality Stroke Does the patient have a stroke diagnosis?: No VTE Prior VTE?: No VTE Risk Level:: Surgical - moderate VTE Device Contraindication: N/A - Device Ordered VTE Drug Contraindication: Treatment Not Indicated
--- NOTE | 2021-05-22 13:09 | P.DS_ITS ---
DS: Providers Provider Date of Service: 05/23/21 Primary care physician: Jesus Corona MD DS: Summary Hospital Course Hospital Course: ADMITTING DIAGNOSIS: morbid obesity, GERD, anxiety, depression, paraesophagela h ernia DISCHARGE DIAGNOSIS: same, s/p laparoscopic sleeve gastrectomy and repair diaphragmatic hernia PAST SURGICAL HISTORY: none PROCEDURE: upper endoscopy, laparoscopic sleeve gastrectomy and repair of diaphragmatic hernia hernia DISCHARGE SUMMARY: History of Present Illness: The patient is a 35 year-old woman with a BMI of 41.2 kg/m2 and associated co- morbidities as described above. The patient had extensive work-up,lost 24.2 lbs preoperatively and was electively scheduled for laparoscopic, possible open sleeve gastrectomy and gastropexy. Risks and complications of the surgery were discussed with the patient in advance, particularly the possibility of , pulmonary embolism, anastomotic leak, bleeding, bowel injury, GERD, cardiac, renal or pulmonary complications. The patient understood all the risks and was in agreement with the surgical plan. Hospital Course: The patient underwent an uneventful laparoscopic sleeve gastrectomy with gastropexy and repair of diaphragmatic hernia on the day of admission. Postoperatively, the patient was transferred to the surgical floor. The patient received IV Acetaminophen and IV dilaudid for pain control. Patient was started on bariatric phase 1 diet POD #0. On postoperative day one, the patient was feeling well without nausea, vomiting, fevers, or tachycardia. The patient had some mild incisional pain and the abdomen was soft. On the morning of postoperative day one, the patient was continued on 1 ounce of water or ice every half hour. During the day, the patient did fairly well, having some incisional pain, but able to ambulate adequately and to tolerate liquids well. Since the patient is doing well, we decided that the patient was ready to be discharged. The patient was given instructions to follow-up with me next week and to call my office for any fever over 101, persistent abdominal pain, nausea, vomiting, GERD, symptoms of DVT such as calf tenderness, or leg swelling, or pulmonary embolism such as chest pain or shortness of breath. The patient was also instructed to drink 40-60 ounces of liquids per day using the 1-ounce cups. The patient had been given prescriptions for Tylenol for pain, Zofran prn for nausea, and pantoprazole and carafate previously. The patient was encouraged to ambulate and use the incentive spirometer. The patient was allowed to shower, but no baths, and encouraged to stay active at home. All of these instructions were given to the patient personally. All questions were answered and the patient understood all instructions, the instructions were also given to the patient in print. Time Spent with Patient Time attestation: Total time spent providing and/or coordinating discharge services: Discharge coordination time: Less than 30 minutes Quality: Stroke Does the patient have a stroke diagnosis?: No Physical Exam Vital Signs: Vital Signs: Last Vital Signs Temp 98.4 F 05/22/21 08:54 Pulse 118 H 05/22/21 08:54 Resp 16 05/22/21 08:54 BP 106/81 05/22/21 08:54 Pulse Ox 98 05/22/21 08:54 BMI result Body Mass Index 36.7 DS: Data Data Completed and Pending Pending studies at discharge: Pending at discharge 05/22/21 11:52 Surgical [PTH] Routine Labs on day of discharge: Laboratory Results - last 24 hr 05/22/21 05/22/21 08:40 08:40 Urine Test NEGATIVE COVID-19 ([facility]) Negative COVID-19 Clin Com See Note Discharge Plan Discharge Patient Disposition: Home, Self-Care Referrals: Jesus Corona MD [Primary Care Provider] - 1 Week Discharge Medications: No Action mecobalamin (vitamin B12) 1,000 mcg tablet,disintegrating 1,000 mcg sublingual DAILY Qty: 30 RF: 2 bupropion HCl 150 mg tablet extended release 24 hr 1 tab PO DAILY RF: 0 cetirizine [Zyrtec] 10 mg Tablet 10 mg PO DAILY PRN (Reason: Allergy Symptoms) RF: 0 norethindrone ac-eth estradiol 1.5-30 mg-mcg tablet 1 tab PO DAILY RF: 0 lorazepam 0.5 mg tablet 0.5 mg PO DAILY PRN (Reason: Anxiety) RF: 0 ondansetron HCl [Zofran] 4 mg tablet 4 mg PO Q8H Qty: 20 RF: 0 pantoprazole 40 mg tablet,delayed release (DR/EC) 40 mg PO DAILY Qty: 30 RF: 2 sucralfate 100 mg/mL suspension 10 ml PO BID Qty: 400 RF: 2 ondansetron HCl [Zofran] 4 mg tablet 4 mg PO Q12H Qty: 20 RF: 0 polyethylene glycol 3350 [Miralax] 17 gram powder in packet 17 g PO DAILY Qty: 14 RF: 0 Discharge Orders: Discharge Order (Routine); Ordered 05/23/21 Ordered By: Jak March Activity Restrictions/Additional Instructions: No tub baths, sex or returning to work until discussed at first post op appointment. No exercise, alcohol, tobacco or illegal drug use. Continue to use incentive spirometer hourly while awake. Walk in home for 5- 10 minutes every 2 hours during the first week. Continue phase 1 diet today and start phase 2 diet tomorrow morning. Follow all instructions in the bariatric handbook and call with any questions. 1. Please call your doctor or come back to the emergency room should any new symptoms arise. 2. You will receive a courtesy call from [facility] 24-48 hours after discharge. 3. Activity: abstain from alcohol, practice limited stair climbing, no bending, no driving, no exercise, no illicit substances, no lifting, no sex, no tub bath, no work. 4. Diet: continue as discussed with Dr. March. 5. Dressing Change/Wound Care: Do not change or remove surgical dressings unless they are wet or soiled. 6. Call your doctor if: - Your temperature exceeds 101.5 F - You experience excessive pain or swelling - You have an unexpected reaction to medication - You have excessive bleeding - You experience continued vomiting/nausea - Your incision begins to separate - Your incision shows signs of infection such as increased redness, swelling, excessive pain, heat, or drainage (light blood or clear fluid is normal) 7. General instructions: No lifting greater than 5 lbs for the next 4 weeks[address] driving within 24 hours of taking narcotic pain medications. If you do not move your bowels in the next 2 days, please take milk of magnesia over the counter. Please follow the post op diet and do not advance your diet until you are seen in the office in about 2 weeks. Please walk around your home every hour or two to prevent blood clots from forming in your legs. You do not need to wake from sleeping to walk. Please sleep in a bed or couch to prevent kinking at the hips and knees. Please take your incentive spirometer (your lung management professionals) home with you and use it for the next few days to prevent pneumonias. You may shower, no hot tubs, baths or swimming pools. Please call the office with any questions or concerns such as increasing abdominal pain, fever, chills, shortness of breath, chest pain, leg pain or swelling, or redness or drainage from your incisions. Do not hesitate to contact the office with any questions at . The patient's medical history has been reviewed and they are considered low risk for post op DVT and therefore DVT prophylaxis is not considered necessary. Travel after surgery was reviewed. The patient has not disclosed any travel plans during the first 30 days after surgery and they have been advised that within the first 30 days after surgery any bus, plane, train or car travel over 2 hours in duration is contraindicated due to the possibility of developing blood clots from immobility. Any travel, needs to include periods of ambulation of 10 minutes in duration every 2 hours. The patient was instructed to discuss any plans for travel during this period with their bariatric surgeon.
[2021-05-22 13:50] LABS: Hematocrit 41.6 % (37.0-47.0); Hemoglobin 13.9 g/dl (12.0-16.0)
[2021-05-22 14:05] LABS: Anion Gap 17 (12-20); Blood Urea Nitrogen 10 mg/dL (9-16); Calcium 9.1 mg/dL (8.4-10.2); Carbon Dioxide 20 mmol/L (22-29); Chloride 105 mmol/L (96-108); Creatinine Clr Calc Pharmacy 95.7; Estimated Glomerular Filt Rate > 60; Glucose Random 97 mg/dL (60-115); Potassium 4.4 mmol/L (3.3-5.1); Sodium 138 mmol/L (135-145)
[2021-05-22] MEDS: Famotidine/PF 20 MG/2 ML VIAL IVPUSH ×2 (14:06→21:20)
[2021-05-22] MEDS: Lactated Ringers 1,000 ML 100 ML IVCONT ×2 (14:07→22:38)
[2021-05-22] MEDS: 0.9 % Sodium Chloride Flush 3 ML SYRINGE IVFLUSH (21:20)
[2021-05-23] VITALS: BP 135/68; PULSE 83; RESP 17; TEMP 36.6; O2SAT 96
[2021-05-23] MEDS: ondansetron HCL 4 MG/2 ML VIAL IVPUSH ×2 (00:26→09:35)
[2021-05-23] MEDS: HYDROmorphone HCl 0.5 MG/0.5 ML SYRINGE 0.25 MG IVPUSH (02:11)
[2021-05-23 03:42] VITALS: BP 113/54; PULSE 76; RESP 16; TEMP 36.2; O2SAT 97
[2021-05-23 06:07] LABS: MANUAL DIFF FLAG NO
[2021-05-23 06:09] LABS: Basophils Percent Auto 0.2 % (0-2); Eosinophils Percent Auto 0.1 % (0-4); Hematocrit 38.7 % (37.0-47.0); Hemoglobin 12.9 g/dl (12.0-16.0); Imm Gran Abs Auto 0.03 X10*3/uL (0.00-0.03); Imm Gran Pct Auto 0.3 % (0.0-0.4); Lymphocytes Absolute Auto 2.1 X10*3/uL (1.2-4.9); Lymphocytes Percent Auto 22.4 % (20-40); Mean Corpuscular HGB Conc 33.3 g/dl (31.0-35.0); Mean Corpuscular Hemoglobin 29.1 pg (27.0-33.0); Mean Corpuscular Volume 87.4 fL (80.0-98.0); Mean Platelet Volume 10.6 fL (9.4-12.3); Monocytes Absolute Auto 0.7 X10*3/uL (0.1-1.2); Monocytes Percent Auto 7.2 % (2-11); Neutrophils Absolute Auto 6.7 x10*3/uL (2.0-8.3); Neutrophils Percent Auto 69.8 % (45-73); Platelet Count 292 X10*3/uL (160-400); Red Blood Count 4.43 X10*6/uL (4.20-5.50); Red Cell Distribution Width 13.3 % (11.0-16.0); White Blood Count 9.5 X10*3/uL (4.8-10.8)
[2021-05-23 06:30] LABS: Anion Gap 14 (12-20); Blood Urea Nitrogen 7 mg/dL (9-16); Calcium 8.9 mg/dL (8.4-10.2); Carbon Dioxide 21 mmol/L (22-29); Chloride 107 mmol/L (96-108); Creatinine Clr Calc Pharmacy 110.1; Estimated Glomerular Filt Rate > 60; Glucose Random 96 mg/dL (60-115); Potassium 4.7 mmol/L (3.3-5.1); Sodium 137 mmol/L (135-145)
[2021-05-23 07:41] VITALS: BP 128/82; PULSE 79; RESP 18; TEMP 36; O2SAT 98
[2021-05-23] MEDS: Famotidine/PF 20 MG/2 ML VIAL IVPUSH (09:35)
[2021-05-23] MEDS: buPROPion HCl XL 150 MG TAB.ER.24H PO (09:35)
--- NOTE | 2021-05-23 09:53 | MHC.CM.PN ---
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 SHE LIVES WITH HER AND TWO CHILDREN IN [facility]. RECIVED COVID [employer] VACINATION THE 2ND DOSE WAS GIVEN 07/13/2020 AND SHE HAS NOT GOTTEN THE BOOSTER YET DISCHARGE PLAN HOME WITH AND CHILDREN TRANSPORTATION PCP ANDRA CHOI PATIENT INSTRUCTED TO CALL FOR POST HOSPITALI DISCHARGE BARIATRIC SURGICAL FOLLOW UP PER INSTRUCTIONS ALL DISCHAGRE PPAPERWORK COMPLETED OF NOTE PATIENT IS FOLLOWED BY PSYCHIATRIST AND THEARPIST FROM [facility] COUNSELING EDUCATED ABOUT THE IMPORTANCE OF HEALTH CARE PROXY
--- NOTE | 2021-05-23 15:06 | HO.POSTANES ---
Post Anesthesia Evaluation Post Anesthesia Evaluation Vital Signs: Vital Signs Temp Pulse Resp BP Pulse Ox 05/23/21 07:41 96.8 F 79 18 128/82 98 05/23/21 03:42 97.2 F 76 16 113/54 L 97 Anesthesia: General Endotracheal-GETA Mental Status: Awake Pain Control: Satisfactory Nausea/Vomiting: None Hydration: Adequate Anesthesia-Related Issues: No Anes. Related Issues
== END 2021-05-23 11:35 | disposition home or self-care (01) ==
LOC: HO.SSS 13:22 → HO.S3 16:52
PROVIDERS: Physician Assistant; PCP Internal Medicine; Visit Provider Surgery
PROC: (CPT 43845; principal; 2021-05-22 10:10)
DX: E66.01 Morbid (severe) obesity due to excess calories (principal); Z68.36 Body mass index [BMI] 36.0-36.9, adult; K21.9 Gastro-esophageal reflux disease without esophagitis; K44.9 Diaphragmatic hernia without obstruction or gangrene; M54.9 Dorsalgia, unspecified; F41.8 Other specified anxiety disorders; Z20.822 Contact with and (suspected) exposure to COVID-19; Z90.49 Acquired absence of other specified parts of digestive tract
CPT/HCPCS: 43775; 43281; 36415; 80048; 80053; 80061; 81025; 83036; 83525; 84443; 85014; 85018; 85025; 85610; 85730; 86140; 86850; 86900; 86901; 87635; 88307; 88342; 99024; A4649; J0131; J0690; J1100; J1170; J2250; J2405; J2550; J3010

== ENCOUNTER → 2021-05-28 10:22 | Outpatient (BNVA) | payer OTHER, SELFPAY | PROVIDERS: PCP Internal Medicine; Referring Provider Internal Medicine; Visit Provider Surgery ==

== ENCOUNTER → 2021-06-30 07:59 | Outpatient (BNVA) | payer OTHER, SELFPAY | PROVIDERS: PCP Internal Medicine; Visit Provider Physician Assistant Surgical ==

== ENCOUNTER → 2021-08-11 13:06 | Outpatient (BNVA) | payer OTHER, BC, SELFPAY | PROVIDERS: PCP Internal Medicine; Referring Provider Internal Medicine; Visit Provider Physician Assistant Surgical ==

== ENCOUNTER → 2021-09-08 13:34 | Outpatient (BNVA) | payer OTHER, BC, SELFPAY | PROVIDERS: PCP Internal Medicine; Referring Provider Internal Medicine; Visit Provider Physician Assistant Surgical | DX: Z13.89 Encounter for screening for other disorder (principal) ==

== ENCOUNTER → 2021-10-08 13:34 | Outpatient (BNVA) | payer OTHER, BC, SELFPAY | PROVIDERS: PCP Internal Medicine; Referring Provider Internal Medicine; Visit Provider Physician Assistant Surgical | DX: E66.3 Overweight (principal) ==

== ENCOUNTER → 2021-11-05 09:30 | Outpatient (BNVA) | payer OTHER, BC, SELFPAY | PROVIDERS: PCP Internal Medicine; Visit Provider Physician Assistant Surgical | DX: E66.3 Overweight (principal) ==

== ENCOUNTER 2021-11-26 09:52 | Outpatient (REF) | payer OTHER, BC, SELFPAY ==
[2021-11-26 10:11] LABS: MANUAL DIFF FLAG NO
[2021-11-26 10:36] LABS: Basophils Absolute Auto 0.1 X10*3/uL (0.0-0.2); Basophils Percent Auto 1.1 % (0-2); Eosinophils Absolute Auto 0.2 X10*3/uL (0.0-0.4); Eosinophils Percent Auto 3.2 % (0-4); Hemoglobin 13.9 g/dl (12.0-16.0); Imm Gran Abs Auto 0.02 X10*3/uL (0.00-0.03); Imm Gran Pct Auto 0.4 % (0.0-0.4); Lymphocytes Absolute Auto 2.3 X10*3/uL (1.2-4.9); Lymphocytes Percent Auto 41.8 % (20-40); Mean Corpuscular HGB Conc 33.9 g/dl (31.0-35.0); Mean Corpuscular Hemoglobin 30.2 pg (27.0-33.0); Mean Corpuscular Volume 89.1 fL (80.0-98.0); Mean Platelet Volume 10.4 fL (9.4-12.3); Monocytes Absolute Auto 0.4 X10*3/uL (0.1-1.2); Monocytes Percent Auto 6.6 % (2-11); Neutrophils Absolute Auto 2.6 x10*3/uL (2.0-8.3); Neutrophils Percent Auto 46.9 % (45-73); Platelet Count 315 X10*3/uL (160-400); Red Cell Distribution Width 13.4 % (11.0-16.0); White Blood Count 5.6 X10*3/uL (4.8-10.8)
[2021-11-26 10:48] LABS: Estimated Average Glucose 94 mg/dL; Hemoglobin A1c % 4.9 %
[2021-11-26 11:05] LABS: Anion Gap 11 (12-20); Blood Urea Nitrogen 12 mg/dL (9-16); C Reactive Protein 1.28 mg/dL (< or = 0.50); Calcium 9.5 mg/dL (8.4-10.2); Carbon Dioxide 25 mmol/L (22-29); Chloride 109 mmol/L (96-108); Cholesterol 185 mg/dL; Estimated Glomerular Filt Rate > 60; Glucose Random 79 mg/dL (60-115); HDL Cholesterol 66 mg/dL; Iron 122 mcg/dL (30-160); LDL Cholesterol Calculated 101 mg/dl; Percent Iron Saturation 28 % (15-50); Potassium 4.5 mmol/L (3.3-5.1); Sodium 140 mmol/L (135-145); Total Iron Binding Capacity 430 mcg/dL (228-428); Triglycerides 92 mg/dL; Unsaturated Iron Binding 308 ug/dL
[2021-11-26 11:28] LABS: Ferritin 74 ng/mL (10-122); Insulin 6 uU/mL (2-29); TSH reflex Free T4 0.99 uIU/mL (0.32-4.0); Vitamin D 25-OH Total 50.7 ng/mL (>30)
[2021-11-26 11:43] LABS: Vitamin B12 298 pg/mL (200-900)
[2021-11-27 15:41] LABS: Calcium (PTHI) 9.6 mg/dL (8.6-10.2); PTHI 69 pg/mL (16-77)
[2021-11-30 18:21] LABS: Vitamin B1 10 nmol/L (8-30)
[2021-12-01 05:56] LABS: Zinc 97 mcg/dL (60-130)
[2021-12-02 10:42] LABS: Vitamin A 72 mcg/dL (38-98)
== END 2021-11-26 09:53 | disposition home or self-care (01) ==
LOC: HO.LAB 09:52
PROVIDERS: PCP Internal Medicine; Visit Provider Physician Assistant Surgical
DX: E66.3 Overweight (principal)
CPT/HCPCS: 36415; 80048; 80061; 82306; 82607; 82728; 82746; 83036; 83525; 83540; 83970; 84425; 84443; 84590; 84630; 85025; 86140

== ENCOUNTER 2022-06-27 09:13 | Outpatient (REF) | payer OTHER, BC, SELFPAY ==
[2022-06-27 09:46] LABS: MANUAL DIFF FLAG NO
[2022-06-27 10:10] LABS: Basophils Absolute Auto 0.1 X10*3/uL (0.0-0.2); Basophils Percent Auto 1.1 % (0-2); Eosinophils Absolute Auto 0.2 X10*3/uL (0.0-0.4); Eosinophils Percent Auto 4.5 % (0-4); Hematocrit 41.5 % (37.0-47.0); Hemoglobin 13.6 g/dl (12.0-16.0); Imm Gran Abs Auto 0.02 X10*3/uL (0.00-0.03); Imm Gran Pct Auto 0.4 % (0.0-0.4); Lymphocytes Absolute Auto 2.6 X10*3/uL (1.2-4.9); Lymphocytes Percent Auto 48.2 % (20-40); Mean Corpuscular HGB Conc 32.8 g/dl (31.0-35.0); Mean Corpuscular Hemoglobin 29.1 pg (27.0-33.0); Mean Corpuscular Volume 88.7 fL (80.0-98.0); Mean Platelet Volume 9.8 fL (9.4-12.3); Monocytes Absolute Auto 0.4 X10*3/uL (0.1-1.2); Monocytes Percent Auto 6.6 % (2-11); Neutrophils Absolute Auto 2.1 x10*3/uL (2.0-8.3); Neutrophils Percent Auto 39.2 % (45-73); Platelet Count 284 X10*3/uL (160-400); Red Blood Count 4.68 X10*6/uL (4.20-5.50); Red Cell Distribution Width 13.6 % (11.0-16.0); White Blood Count 5.3 X10*3/uL (4.8-10.8)
[2022-06-27 10:40] LABS: Anion Gap 12 (12-20); Blood Urea Nitrogen 13 mg/dL (9-16); C Reactive Protein 0.44 mg/dL (< or = 0.50); Calcium 9.3 mg/dL (8.4-10.2); Carbon Dioxide 24 mmol/L (22-29); Chloride 108 mmol/L (96-108); Cholesterol 182 mg/dL; Estimated Glomerular Filt Rate > 60; Glucose Random 81 mg/dL (60-115); HDL Cholesterol 79 mg/dL; Iron 196 mcg/dL (30-160); LDL Cholesterol Calculated 92 mg/dl; Percent Iron Saturation 50 % (15-50); Potassium 4.4 mmol/L (3.3-5.1); Sodium 140 mmol/L (135-145); Total Iron Binding Capacity 390 mcg/dL (228-428); Triglycerides 55 mg/dL; Unsaturated Iron Binding 194 ug/dL
[2022-06-27 11:07] LABS: Folate 5.7 ng/mL (> or = 4.0); Vitamin B12 331 pg/mL (200-900)
[2022-06-27 11:10] LABS: Ferritin 56 ng/mL (10-122); Insulin 4 uU/mL (2-29); TSH reflex Free T4 0.88 uIU/mL (0.32-4.0); Vitamin D 25-OH Total 35.8 ng/mL (>30)
[2022-06-29 16:29] LABS: Calcium (PTHI) 9.4 mg/dL (8.6-10.2); PTHI 67 pg/mL (16-77)
[2022-06-30 16:44] LABS: Zinc 76 mcg/dL (60-130)
[2022-07-01 09:33] LABS: Vitamin A 76 mcg/dL (38-98)
[2022-07-01 16:08] LABS: Vitamin B1 15 nmol/L (8-30)
== END 2022-06-27 09:14 | disposition home or self-care (01) ==
LOC: HO.LAB 09:13
PROVIDERS: PCP Internal Medicine; Visit Provider Physician Assistant Surgical
DX: E53.8 Deficiency of other specified B group vitamins (principal); Z98.84 Bariatric surgery status
CPT/HCPCS: 36415; 80048; 80061; 82306; 82607; 82728; 82746; 83525; 83540; 83970; 84425; 84443; 84590; 84630; 85025; 86140

== ENCOUNTER 2023-04-23 10:34 | Outpatient (AMB) | payer OTHER, SELFPAY ==
[2023-04-23 10:36] VITALS: BP 110/70; PULSE 78; O2SAT 100; BMI 25.4
--- NOTE | 2023-04-23 10:36 | A.OFFPC_ITS ---
Vital Signs 3 04/23/23 10:36 Height 4 ft 11 in Weight 126 lb BMI 25.4 BP 110/70 Blood Pressure Location Rt brachial Position Sitting Pulse 78 Pulse Source Pulse Oximeter Pulse Oximetry (%) 100 Oxygen Delivery Method Room Air Intake Visit Reasons: Pre-Op appointment for Panniculectomy Allergies egg Allergy (Unknown, Verified 04/23/23 10:40) Lump in Throa t seasonal Allergy (Unknown, Uncoded 03/11/23 15:29) Runny Nose, Itchy Eyes Medication List - Last Reconciled 04/23/23 by Jesus Corona MD bupropion HCl 1 tab PO DAILY [Celebrate baritric MVI PO DAILY] [Celebrate Clint+D PO BID] cetirizine (Zyrtec) 10 mg PO DAILY PRN clotrimazole 1% (Antifungal (clotrimazole)) 1 appl topical BID lorazepam 0.5 mg PO DAILY PRN norethindrone ac-eth estradiol 1.5-30 mg-mcg 1 tab PO DAILY Tobacco use date assessed: 04/23/23 Dental Screening Dental Screen Date: 04/23/23 Did you have a dental visit in the last 12 months?: Yes Did you have a dental problem in the last 6 months where you did not have access to dental care?: No Was dental information given to patient?: Patient has dentist HPI Pre-Op appointment for Panniculectomy 2 HPI0 Details Patient is 37-year-old female came in today for preop evaluation for Panniculectomy by Dr. Dias May 25 Patient had gastric sleeve surgery and has lost lot of weight I have ordered labs She has no history of diabetes, hypertension or heart disease EKG done today shows normal sinus rhythm , no ST T abnormality however patient have a short OR interval of 98 millisecond I would like her to be cleared by Cardiology before the procedure. We will book appointment Patient is stable for surgery once cleared by Cardiology [facility] Medical History Back pain Anxiety GERD (gastroesophageal reflux disease) Depression Morbid obesity Surgical History History of sleeve gastrectomy Hx of wisdom tooth extraction Hx of cholecystectomy Family History Mother Spinal stenosis Ovarian cancer Father No problems noted. Brother No problems noted. Sister No problems noted. Son No problems noted. Daughter No problems noted. Other Mental health disorder Substance use disorder Social History Housing: Apartment Are you a primary acute care physical therapist to a significant other at home: No Do you presently have visiting nurse or other home services: No Alcohol intake: current Alcohol intake frequency: holidays/special occasions only Patient Tobacco Use Status: Never used Tobacco e-Cigarette/Vaping Use: Never Used Second Hand Smoke Exposure: Yes service: No Current occupational status: employed Cognitive needs: No Hearing needs: No Vision needs: Yes (contacts) Questionnaire Thrive Questionnaire Date Thrive assessed: 06/30/22 AUDIT C Alcohol Use Questionnaire (AUDIT-C) 1. How often do you have a drink containing alcohol?: 2-4 times a month 2. How many drinks containing alcohol do you have on a typical day when you are drinking?: 1 or 2 3. How often do you have six or more drinks on one occasion?: Never Total Score: 2 Score Reviewed/Action Taken: Yes LENNY-7 AMB Questionnaire LENNY-7 Date LENNY - 7 assessed: 06/30/22 Source: Developed by Drs. Kirk Zapata, Carina Briscoe, Sandeep Oglesby and colleagues, with an educational kristin from [employer]. Review of Systems Const Denies chills, Denies fever(s) and Denies headache(s) Eyes Denies blurry vision ENT Denies headache(s), Denies nasal discharge, Denies nasal obstruction, Denies odynophagia and Denies sinus pain Card Denies chest pain at rest and Denies chest pain with activity Resp Denies cough and Denies hemoptysis GI Denies diarrhea, Denies odynophagia, Denies vomiting and Denies hematemesis Reports as per HPI Musc Denies abnormal gait Skin/Breast Reports as per HPI Neuro Denies Neuro-related abnormal movements, Denies Abnormal speech present, Denies abnormal gait, Denies headache(s) and Denies Sensory deficit (Neuro) Psych Denies mood swings and Denies paranoia Endo Reports as per HPI Ervin/Lymph Reports as per HPI Aller/Immun Reports as per HPI Physical exam (Primary Care) Vital Signs: Last Vital Signs Pulse 78 04/23/23 10:36 BP 110/70 04/23/23 10:36 Pulse Ox 100 04/23/23 10:36 Oxygen Delivery Method Room Air 04/23/23 10:36 BMI result Body Mass Index 25.4 Tobacco/Smoking Status: Tobacco use Status Tobacco use date assessed 04/23/23 04/23/23 10:36 Patient Tobacco Use Status Never used Tobacco 04/23/23 10:36 e-Cigarette/Vaping Use Never Used 04/23/23 10:36 Thrive Assessment: Date of Thrive Assessment Date Thrive assessed 06/30/22 04/23/23 10:36 Const General: cooperative, comfortable and no acute distress Orientation/consciousness: patient oriented x3 HENMT Head: Yes normocephalic and Yes atraumatic Eyes General: appearance normal, both eyes and all related structures Pupils: Equal, round and reactive pupils present EOM: EOMs intact bilaterally Neck Neck: Yes supple and No lymphadenopathy Thyroid: Thyroid normal Lymphatic: no lymphadenopathy noted Resp Effort & Inspection: normal respiratory effort and able to speak in complete sentences Auscultation: clear to auscultation bilaterally Cardio Other: Heart sounds: S1 normal heart sound present and S2 normal heart sound present GI Palpation (GI): Soft to palpation and nontender Auscultation: normal bowel sounds General: Yes no CVA tenderness Back/Spine/Pelvis Back: no CVA tenderness Skin General skin exam: elasticity normal and turgor normal Neuro General: patient oriented x3 and gait normal Cranial nerves: Yes Equal, round and reactive pupils present Speech: No Abnormal speech present Sensory Exam: No Sensory deficit (Neuro) Coordination: tandem gait normal and Romberg test negative Extrem General: Yes normal exam except as noted and No edema Office Procedures EKG [id number], Complete Assessment and Plan Assessment & Plan (1) Preop general physical exam: Code(s): Z01.818 - Encounter for other preprocedural examination (2) Excess skin of abdominal wall: Code(s): L98.7 - Excessive and redundant skin and subcutaneous tissue (3) Abnormal EKG: Code(s): R94.31 - Abnormal electrocardiogram [ECG] [EKG] (4) Shortened OR interval: Code(s): R94.31 - Abnormal electrocardiogram [ECG] [EKG] Plan Patient is 37-year-old female came in today for preop evaluation for Panniculectomy by Dr. Dias May 25 Patient had gastric sleeve surgery and has lost lot of weight I have ordered labs She has no history of diabetes, hypertension or heart disease EKG done today shows normal sinus rhythm , no ST T abnormality however patient have a short OR interval of 98 millisecond I would like her to be cleared by Cardiology before the procedure. We will book appointment Patient is stable for surgery once cleared by Cardiology Orders: Orders 2 Comprehensive Met. Panel Today L98.7 - Excessive and redundant skin and subcutaneous tissue, Z01.818 - Encounter for other preprocedural examination TSH reflex Free T4 Today L98.7 - Excessive and redundant skin and subcutaneous tissue, Z01.818 - Encounter for other preprocedural examination LDL Cholesterol Direct Today L98.7 - Excessive and redundant skin and subcutaneous tissue, Z01.818 - Encounter for other preprocedural examination Complete Blood Count Auto Diff Today L98.7 - Excessive and redundant skin and subcutaneous tissue, Z01.818 - Encounter for other preprocedural examination AMB EKG-In Office Today Z01.818 - Encounter for other preprocedural examination Referrals 2 Cardiology Referral R94.31 - Abnormal electrocardiogram [ECG] [EKG], Z01.818 - Encounter for other preprocedural examination Coding Level of Care Code Est Pt Level 4 (12314) Diagnoses Preop general physical exam Z01.818 Excess skin of abdominal wall L98.7 Abnormal EKG R94.31 Shortened OR interval R94.31 CPT Codes EKG - CPT: 92335-[id number], Complete ([id number])
== END 2023-04-23 12:25 | disposition home or self-care (01) ==
LOC: HO.HMGC 10:34
PROVIDERS: PCP Internal Medicine; Visit Provider Internal Medicine
DX: Z01.818 Encounter for other preprocedural examination (principal); L98.7 Excessive and redundant skin and subcutaneous tissue; R94.31 Abnormal electrocardiogram [ECG] [EKG]
CPT/HCPCS: 93000; 99214

== ENCOUNTER 2023-04-23 10:59 | Outpatient (REF) | payer OTHER, SELFPAY ==
[2023-04-23 13:40] LABS: MANUAL DIFF FLAG NO
[2023-04-23 13:50] LABS: Basophils Absolute Auto 0.1 X10*3/uL (0.0-0.2); Basophils Percent Auto 0.8 % (0-2); Eosinophils Absolute Auto 0.2 X10*3/uL (0.0-0.4); Eosinophils Percent Auto 2.7 % (0-4); Hematocrit 45.1 % (37.0-47.0); Hemoglobin 14.6 g/dl (12.0-16.0); Imm Gran Abs Auto 0.02 X10*3/uL (0.00-0.03); Imm Gran Pct Auto 0.3 % (0.0-0.4); Lymphocytes Absolute Auto 2.1 X10*3/uL (1.2-4.9); Lymphocytes Percent Auto 26.6 % (20-40); Mean Corpuscular HGB Conc 32.4 g/dl (31.0-35.0); Mean Corpuscular Hemoglobin 29.4 pg (27.0-33.0); Mean Corpuscular Volume 90.7 fL (80.0-98.0); Mean Platelet Volume 10.1 fL (9.4-12.3); Monocytes Absolute Auto 0.5 X10*3/uL (0.1-1.2); Monocytes Percent Auto 6.8 % (2-11); Neutrophils Absolute Auto 4.9 x10*3/uL (2.0-8.3); Neutrophils Percent Auto 62.8 % (45-73); Platelet Count 347 X10*3/uL (160-400); Red Blood Count 4.97 X10*6/uL (4.20-5.50); Red Cell Distribution Width 13.2 % (11.0-16.0); White Blood Count 7.8 X10*3/uL (4.8-10.8)
[2023-04-23 14:23] LABS: Alanine Aminotransferase 9 U/L (0-31); Albumin Level 4.3 g/dL (3.5-5.0); Alkaline Phosphatase 49 U/L (39-117); Anion Gap 10 (12-20); Aspartate Amino Transferase 17 U/L (5-31); Bilirubin Total 0.4 mg/dL (0.0-1.0); Blood Urea Nitrogen 15 mg/dL (9-16); Calcium 9.4 mg/dL (8.4-10.2); Carbon Dioxide 28 mmol/L (22-29); Chloride 107 mmol/L (96-108); Estimated Glomerular Filt Rate > 60; Glucose Random 81 mg/dL (60-115); Potassium 4.3 mmol/L (3.3-5.1); Sodium 141 mmol/L (135-145); TSH reflex Free T4 0.64 uIU/mL (0.32-4.0); Total Protein 7.4 g/dL (6.5-8.0)
[2023-04-25 06:59] LABS: LDL Cholesterol Direct 115 mg/dL (<100)
== END 2023-04-23 11:00 | disposition home or self-care (01) ==
LOC: HO.HMGCLDS 10:59
PROVIDERS: PCP Internal Medicine; Visit Provider Internal Medicine
DX: Z01.818 Encounter for other preprocedural examination (principal); L98.7 Excessive and redundant skin and subcutaneous tissue
CPT/HCPCS: 36415; 80053; 83721; 84443; 85025

== ENCOUNTER 2023-05-10 13:00 | Outpatient (AMB) | payer OTHER, SELFPAY ==
[2023-05-10 13:08] VITALS: BP 110/72; PULSE 70; BMI 24.9
--- NOTE | 2023-05-10 13:08 | MHC.OFFVIS ---
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/ Intake Note: New patient Dr Corona pre-op clearance skin removal at [facility] feeling good [employer] Loader Required: No Allergies egg Allergy (Unknown, Verified 04/23/23 10:40) Lump in Throa t seasonal Allergy (Unknown, Uncoded 03/11/23 15:29) Runny Nose, Itchy Eyes Medication List - Last Reconciled 05/10/23 by Max Parker MD bupropion HCl 150 mg PO DAILY [Celebrate baritric MVI PO DAILY] [Celebrate Clint+D PO BID] cetirizine (Zyrtec) 10 mg PO DAILY PRN clotrimazole 1% (Antifungal (clotrimazole)) 1 appl topical BID lorazepam 0.5 mg PO DAILY PRN norethindrone ac-eth estradiol 1.5-30 mg-mcg 1 tab PO DAILY HPI HPI Comments History of Present Illness Details Frances was referred here for abnormal EKG. I reviewed EKG which was read as having PVCs although there appears to be an artifact. She does have a short IA interval which is old and had subsequent stress test which was within normal limits. She had nonspecific ST abnormality. She since then has undergone gastric sleeve bariatric surgery and has lost about 85 lb. She is doing very well she has no cardiac symptoms whatsoever. She remains very active and denies any exertional chest pain or shortness of breath. She is to undergo plastic surgery with excess skin removal under general anesthesia, low to intermediate risk surgery [facility] Medical History Back pain Anxiety GERD (gastroesophageal reflux disease) Depression Morbid obesity Surgical History History of sleeve gastrectomy Hx of wisdom tooth extraction Hx of cholecystectomy Family History Mother Spinal stenosis Ovarian cancer Father No problems noted. Brother No problems noted. Sister No problems noted. Son No problems noted. Daughter No problems noted. Other Mental health disorder Substance use disorder Social History Housing: Apartment Are you a primary career services director to a significant other at home: No Do you presently have visiting nurse or other home services: No Alcohol intake: current Alcohol intake frequency: holidays/special occasions only Patient Tobacco Use Status: Never used Tobacco e-Cigarette/Vaping Use: Never Used Second Hand Smoke Exposure: Yes service: No Current occupational status: employed Cognitive needs: No Hearing needs: No Vision needs: Yes (contacts) Review of Systems Const Denies chills, Denies daytime sleepiness, Denies fatigue, Denies fever(s), Denies frequent falls, Denies poor appetite, Denies snoring, Denies stops breathing during sleep, Denies weakness, Denies weight gain and Denies weight loss Eyes Denies loss of vision ENT Denies dizziness and Denies hearing loss Card Denies chest pain, Denies claudication, Denies leg edema, Denies lightheadedness, Denies palpitations, Denies dyspnea, Denies dyspnea on exertion and Denies orthopnea Resp Denies cough, Denies excessive phlegm production, Denies dyspnea, Denies dyspnea on exertion, Denies snoring and Denies wheezing GI Denies abdominal pain, Denies hematochezia, Denies change in bowel habits, Denies nausea and Denies vomiting Denies urinary frequency and Denies dysuria Musc Denies arthralgias, Denies muscle weakness, Denies numbness and Denies other (frequent falls) Skin/Breast Denies nail changes and Denies rash Neuro Denies Abnormal speech present, Denies dizziness, Denies frequent falls, Denies loss of vision, Denies memory loss, Denies numbness and Denies weakness Psych Denies depression and Denies memory loss Endo Denies fatigue and Denies palpitations Ervin/Lymph Reports easy bruising and Reports other (anemia) Aller/Immun Denies wheezing Physical Exam Vital Signs: Last Vital Signs Pulse 70 05/10/23 13:08 BP 110/72 05/10/23 13:08 BMI result Body Mass Index 24.9 Const General: cooperative, comfortable, no acute distress, alert, awake, Physically active and well groomed Nutritional Appearance: average body habitus Orientation/consciousness: patient oriented x3 Limitations: no limitations HEENT Head: Yes normocephalic and Yes atraumatic Neck Neck: Yes trachea midline, Yes supple and Yes no JVD Resp Effort & Inspection: normal respiratory effort Auscultation: clear to auscultation bilaterally Cardio Jugular venous distension: no JVD Palpation: normal PMI Rate: regular rate Rhythm: regular rhythm Heart sounds: S1 normal heart sound present, S2 normal heart sound present, no click, no gallops, no murmurs and no rubs GI Auscultation: normal bowel sounds Skin General skin exam: no rashes or lesions noted Neuro General: patient oriented x3 and no focal motor deficits Speech: No Abnormal speech present Extrem General: Yes no clubbing, cyanosis or edema Assessment & Plan Assessment & Plan (1) Pre-op evaluation: Code(s): Z01.818 - Encounter for other preprocedural examination Plan: Preoperative cardiovascular evaluation young woman with no cardiovascular risk factors in no cardiovascular symptoms with good functional capacity to undergo noncardiac surgery with excess skin removal under general anesthesia. This is considered low to intermediate risk surgery. Patient short IA interval which may be a normal variant and had workup in the past. There is no evidence of PVCs. From cardiac perspective patient is optimized to undergo surgery with low risk for perioperative cardiovascular morbidity mortality. No further workup is indicated. Will follow up in the clinic if need be. Thank you for allowing me to partake in her care Coding Level of Care Code New Pt Level 3 (10241) Diagnoses Pre-op evaluation Z01.818
== END 2023-05-10 13:42 | disposition home or self-care (01) ==
PROVIDERS: PCP Internal Medicine; Visit Provider Internal Medicine Cardiovascular Disease
DX: Z01.818 Encounter for other preprocedural examination (principal)
CPT/HCPCS: 99203

== ENCOUNTER → 2023-05-10 13:00 | Outpatient (BNVA) | payer OTHER, SELFPAY | PROVIDERS: PCP Internal Medicine; Visit Provider Internal Medicine Cardiovascular Disease ==

== ENCOUNTER 2024-04-04 12:25 | Outpatient (AMB) | payer OTHER, SELFPAY ==
--- NOTE | 2024-04-04 12:31 | A.OFFPC_ITS ---
Vital Signs 04/04/24 12:32 Height 4 ft 11 in Weight 124 lb 4 oz BMI 25.1 BP 118/76 Blood Pressure Location Rt brachial Position Sitting Pulse 76 Pulse Source Pulse Oximeter Pulse Oximetry (%) 99 Oxygen Delivery Method Room Air Intake Visit Reasons: Physical Allergies egg Allergy (Unknown, Verified 04/04/24 12:31) Lump in Throa t seasonal Allergy (Unknown, Uncoded 03/11/23 15:29) Runny Nose, Itchy Eyes Medication List - Last Reconciled 04/04/24 by Jesus Corona MD bupropion HCl XL 150 mg PO DAILY cetirizine (Zyrtec) 10 mg PO DAILY PRN lorazepam 0.5 mg PO DAILY PRN norethindrone ac-eth estradiol 1.5-30 mg-mcg 1 tab PO DAILY Tobacco use date assessed: 04/04/24 Dental Screening Dental Screen Date: 04/04/24 Did you have a dental visit in the last 12 months?: Yes Did you have a dental problem in the last 6 months where you did not have access to dental care?: No Was dental information given to patient?: Patient has dentist HPI Physical HPI Details Physical exam appointment Patient complaining of numbness in her hands mostly thumbs Which started few weeks ago She works on a computer all day We talked about proper working station At this time I would recommend that she start wearing splints at night And get back to me in a month if still have a problem Complaining of feeling tired, brittle nails and hair falling Lab order placed to be done fasting, we will check vitamin deficiencies Magnesium level thyroid level Vital signs stable Patient is established with OBGYN, breast exams through them Psychiatric medications through Psychiatry Allergies are stable [facility] Medical History Back pain Anxiety GERD (gastroesophageal reflux disease) Depression Morbid obesity Surgical History History of sleeve gastrectomy Hx of wisdom tooth extraction Hx of cholecystectomy Family History Mother Spinal stenosis Ovarian cancer Father No problems noted. Brother No problems noted. Sister No problems noted. Son No problems noted. Daughter No problems noted. Other Mental health disorder Substance use disorder Social History Housing: Apartment Are you a primary housekeeper child care to a significant other at home: No Do you presently have visiting nurse or other home services: No Alcohol intake: current Alcohol intake frequency: holidays/special occasions only Patient Tobacco Use Status: Never used Tobacco e-Cigarette/Vaping Use: Never Used Second Hand Smoke Exposure: Yes service: No Current occupational status: employed Cognitive needs: No Hearing needs: No Vision needs: Yes (contacts) Questionnaire PHQ-9 Over the last 2 weeks, how often have you been bothered by any of the following problems? 1. Little interest or pleasure in doing things: not at all 2. Feeling down, depressed, or hopeless: not at all 3. Trouble falling or staying asleep, or sleeping too much: several days 4. Feeling tired or having little energy: nearly every day 5. Poor appetite or overeating: not at all 6. Feeling bad about yourself - or that you are a failure or have let yourself or your family down: not at all 7. Trouble concentrating on things, such as reading the newspaper or watching television: several days 8. Moving or speaking so slowly that other people could have noticed. Or the opposite - being so fidgety or restless that you have been moving around a lot more than usual: not at all 9. Thoughts that you would be better off or of hurting yourself in some way: not at all Total score: 5 Depression Screening Interpretation: Negative Depression Screening Done: Yes 10624 - PHQ-9 Billing: Yes Source: Developed by Drs. Kirk Zapata, Carina Briscoe, Sandeep Oglesby and colleagues, with an educational kristin from [employer]. Thrive Questionnaire Date Thrive assessed: 04/04/24 I am a: Patient What is your living situation today?: I have a steady place to live Within the past 12 months, did the food you bought not last and you didn't have the money to get more?: Never true Within the past 12 months, did you worry whether your food would run out before you got money to buy more?: Never true Do you have trouble paying for medicines?: No Do you have trouble getting transportation to medical appointments?: No Do you have trouble paying your heating and electricity bill?: No Do you have trouble taking care of your child, family member or friend?: No Do you have trouble with day-to-day activities such as bathing, preparing meals, shopping, managing finances, etc.?: No Are you currently unemployed and looking for a job?: No Are you interested in more education?: No Please select the resources that you would like help with: None Currently or been in a relationship where the following occur: No concerns reported THRIVE Score: 0 AUDIT C Alcohol Use Questionnaire (AUDIT-C) 1. How often do you have a drink containing alcohol?: 2-4 times a month 2. How many drinks containing alcohol do you have on a typical day when you are drinking?: 1 or 2 3. How often do you have six or more drinks on one occasion?: Never Total Score: 2 Score Reviewed/Action Taken: Yes LENNY-7 AMB Questionnaire LENNY-7 Date LENNY - 7 assessed: 04/04/24 Feeling nervous, anxious, or on edge: 1 = Several days Not being able to stop or control worryin = Not at all Worrying too much about different things: 1 = Several days Trouble relaxin = Nearly every day Being so restless that it is hard to sit still: 0 = Not at all Becoming easily annoyed or irritable: 1 = Several days Feeling afraid as if something awful might happen: 0 = Not at all Total LENNY-7 score (0-4 normal; 5-9 mild; 10-14 moderate; 15-21 severe): 6 Source: Developed by Drs. Kirk Zapata, Carina Briscoe, Sandeep Oglesby and colleagues, with an educational kristin from [employer]. LENNY-7 Assessment Billing LENNY-7 Assessment Tool: LENNY-7 Assessment 33276 Review of Systems Const Denies chills, Denies fever(s) and Denies headache(s) Eyes Denies blurry vision ENT Denies headache(s), Denies nasal discharge, Denies nasal obstruction, Denies odynophagia and Denies sinus pain Card Denies chest pain at rest and Denies chest pain with activity Resp Denies cough and Denies hemoptysis GI Denies diarrhea, Denies odynophagia, Denies vomiting and Denies hematemesis Reports as per HPI Musc Denies abnormal gait Skin/Breast Reports as per HPI Neuro Denies Neuro-related abnormal movements, Denies Abnormal speech present, Denies abnormal gait, Denies headache(s) and Denies Sensory deficit (Neuro) Psych Denies mood swings and Denies paranoia Endo Reports as per HPI Ervin/Lymph Reports as per HPI Aller/Immun Reports as per HPI Physical exam (Primary Care) Vital Signs: Last Vital Signs Pulse 76 04/04/24 12:32 BP 118/76 04/04/24 12:32 Pulse Ox 99 04/04/24 12:32 Oxygen Delivery Method Room Air 04/04/24 12:32 BMI result Body Mass Index 25.1 Tobacco/Smoking Status: Tobacco use Status Tobacco use date assessed 04/04/24 04/04/24 12:34 Patient Tobacco Use Status Never used Tobacco 04/04/24 12:34 e-Cigarette/Vaping Use Never Used 04/04/24 12:34 PHQ-9: PHQ-9 Score PHQ-9: Total score 5 04/04/24 12:34 Depression Screening Interpretation: Negative Thrive Assessment: Date of Thrive Assessment Date Thrive assessed 04/04/24 04/04/24 12:34 Currently or been in a relationship where the following occur: No concerns reported Const General: cooperative, comfortable and no acute distress Orientation/consciousness: patient oriented x3 HENMT Head: Yes normocephalic and Yes atraumatic Eyes General: appearance normal, both eyes and all related structures Pupils: Equal, round and reactive pupils present EOM: EOMs intact bilaterally Neck Neck: Yes supple and No lymphadenopathy Thyroid: Thyroid normal Lymphatic: no lymphadenopathy noted Resp Effort & Inspection: normal respiratory effort and able to speak in complete sentences Auscultation: clear to auscultation bilaterally Cardio Heart sounds: S1 normal heart sound present and S2 normal heart sound present GI Palpation (GI): Soft to palpation and nontender Auscultation: normal bowel sounds General: Yes no CVA tenderness Back/Spine/Pelvis Back: no CVA tenderness Skin General skin exam: elasticity normal and turgor normal Neuro General: patient oriented x3 and gait normal Cranial nerves: Yes Equal, round and reactive pupils present Speech: No Abnormal speech present Sensory Exam: No Sensory deficit (Neuro) Coordination: tandem gait normal and Romberg test negative Extrem General: Yes normal exam except as noted and No edema Coding Level of Care Code Est Pt Level 4 (12430) Est Pt Prev Care 18-39y(30037) Diagnoses Encounter for general adult medical examination with abnormal findings Z00.01 Tired R53.83 Paresthesia of both hands R20.2 Anxiety, generalized F41.1 Uses control Z78.9 Recurrent major depressive disorder, in full remission F33.42 Active/Remission status: in full remission Depression Type: major depressive disorder Major depression recurrence: recurrent Vitamin B12 deficiency E53.8 Additional Codes LENNY-7 Assessment Billing - LENNY-7 Assessment Tool: LENNY-7 Assessment 64329 ([id number]) Assessment & Plan Assessment & Plan (1) Encounter for general adult medical examination with abnormal findings: Code(s): Z00.01 - Encounter for general adult medical examination with abnormal findings Category: Medical (2) Tired: Code(s): R53.83 - Other fatigue Category: Medical (3) Paresthesia of both hands: Code(s): R20.2 - Paresthesia of skin Category: Medical (4) Anxiety, generalized: Code(s): F41.1 - Generalized anxiety disorder Category: Medical (5) Uses control: Code(s): Z78.9 - Other specified health status Category: Social Hx (6) Depression: Code(s): F32.9 - Major depressive disorder, single episode, unspecified Category: Medical Qualifiers: Active/Remission status: in full remission Depression Type: major depressive disorder Major depression recurrence: recurrent Qualified Code(s): F33.42 - Major depressive disorder, recurrent, in full remission (7) Vitamin B12 deficiency: Code(s): E53.8 - Deficiency of other specified B group vitamins Category: Medical Plan Physical exam appointment Patient complaining of numbness in her hands mostly thumbs Which started few weeks ago She works on a computer all day We talked about proper working station At this time I would recommend that she start wearing splints at night And get back to me in a month if still have a problem Complaining of feeling tired, brittle nails and hair falling Lab order placed to be done fasting, we will check vitamin deficiencies Magnesium level thyroid level Vital signs stable Patient is established with OBGYN, breast exams through them Psychiatric medications through Psychiatry Allergies are stable Orders: Orders Lipid Panel Today E53.8 - Deficiency of other specified B group vitamins, F32.9 - Major depressive disorder, single episode, unspecified, F41.1 - Generalized anxiety disorder, Z00.01 - Encounter for general adult medical examination with abnormal findings, Z78.9 - Other specified health status Vitamin D 25-OH (D2 and D3) Today E53.8 - Deficiency of other specified B group vitamins, F32.9 - Major depressive disorder, single episode, unspecified, F41.1 - Generalized anxiety disorder, Z00.01 - Encounter for general adult medical examination with abnormal findings, Z78.9 - Other specified health status Vitamin B12 Today E53.8 - Deficiency of other specified B group vitamins, F32.9 - Major depressive disorder, single episode, unspecified, F41.1 - Generalized anxiety disorder, Z00.01 - Encounter for general adult medical examination with abnormal findings, Z78.9 - Other specified health status Ferritin Today R53.83 - Other fatigue Magnesium Today R53.83 - Other fatigue TSH reflex Free T4 Today R53.83 - Other fatigue Complete Blood Count Auto Diff Today E53.8 - Deficiency of other specified B group vitamins, F32.9 - Major depressive disorder, single episode, unspecified, F41.1 - Generalized anxiety disorder, Z00.01 - Encounter for general adult medical examination with abnormal findings, Z78.9 - Other specified health status Comprehensive [place]. Panel Fast Today E53.8 - Deficiency of other specified B group vitamins, F32.9 - Major depressive disorder, single episode, unspecified, F41.1 - Generalized anxiety disorder, Z00.01 - Encounter for general adult medical examination with abnormal findings, Z78.9 - Other specified health status
[2024-04-04 12:32] VITALS: BP 118/76; PULSE 76; O2SAT 99; BMI 25.1
== END 2024-04-04 12:53 | disposition home or self-care (01) ==
LOC: HO.HMCC 12:26
PROVIDERS: PCP Internal Medicine; Visit Provider Internal Medicine
DX: Z00.00 Encounter for general adult medical examination without abnormal findings (principal); F33.42 Major depressive disorder, recurrent, in full remission; R53.83 Other fatigue; R20.2 Paresthesia of skin; F41.1 Generalized anxiety disorder; Z78.9 Other specified health status; E53.8 Deficiency of other specified B group vitamins

== ENCOUNTER 2024-04-04 12:25 | Outpatient (REF) | payer OTHER, SELFPAY ==
[2024-04-04 16:45] LABS: MANUAL DIFF FLAG NO
[2024-04-04 16:49] LABS: Basophils Absolute Auto 0.1 X10*3/uL (0.0-0.2); Eosinophils Absolute Auto 0.4 X10*3/uL (0.0-0.4); Eosinophils Percent Auto 4.8 % (0-4); Hematocrit 43.1 % (37.0-47.0); Hemoglobin 14.1 g/dl (12.0-16.0); Imm Gran Abs Auto 0.02 X10*3/uL (0.00-0.03); Imm Gran Pct Auto 0.3 % (0.0-0.4); Lymphocytes Absolute Auto 3.3 X10*3/uL (1.2-4.9); Lymphocytes Percent Auto 44.6 % (20-40); Mean Corpuscular HGB Conc 32.7 g/dl (31.0-35.0); Mean Corpuscular Hemoglobin 29.7 pg (27.0-33.0); Mean Corpuscular Volume 90.7 fL (80.0-98.0); Mean Platelet Volume 10.2 fL (9.4-12.3); Monocytes Absolute Auto 0.5 X10*3/uL (0.1-1.2); Monocytes Percent Auto 6.3 % (2-11); Neutrophils Absolute Auto 3.2 x10*3/uL (2.0-8.3); Platelet Count 299 X10*3/uL (160-400); Red Blood Count 4.75 X10*6/uL (4.20-5.50); White Blood Count 7.3 X10*3/uL (4.8-10.8)
[2024-04-04 17:16] LABS: Alanine Aminotransferase 15 U/L (0-31); Albumin Level 4.3 g/dL (3.5-5.0); Alkaline Phosphatase 46 U/L (39-117); Anion Gap 12 (12-20); Aspartate Amino Transferase 24 U/L (5-31); Bilirubin Total 0.5 mg/dL (0.0-1.0); Blood Urea Nitrogen 11 mg/dL (9-16); Calcium 9.4 mg/dL (8.4-10.2); Carbon Dioxide 25 mmol/L (22-29); Chloride 107 mmol/L (96-108); Cholesterol 201 mg/dL (<200); Estimated Glomerular Filt Rate > 60; Glucose Fasting 78 mg/dL (60-99); HDL Cholesterol 97 mg/dL (>40); LDL Cholesterol Calculated 94 mg/dL (<100); Magnesium 2.2 mg/dL (1.6-2.6); Potassium 3.9 mmol/L (3.3-5.1); Sodium 140 mmol/L (135-145); Total Protein 7.3 g/dL (6.5-8.0); Triglycerides 51 mg/dL (<150)
[2024-04-04 17:23] LABS: Ferritin 32 ng/mL (10-122); TSH reflex Free T4 1.02 uIU/mL (0.32-4.0)
[2024-04-04 17:33] LABS: Vitamin B12 1278 pg/mL (200-900)
[2024-04-09 15:23] LABS: Vitamin D 25-OH, D2 <4 ng/mL; Vitamin D 25-OH, D3 35 ng/mL; Vitamin D 25-OH, Total 35 ng/mL (30-100)
== END 2024-04-04 12:26 | disposition home or self-care (01) ==
LOC: HO.HMGCLDS 12:25
PROVIDERS: PCP Internal Medicine; Visit Provider Internal Medicine
DX: Z00.01 Encounter for general adult medical examination with abnormal findings (principal); E53.8 Deficiency of other specified B group vitamins; F41.1 Generalized anxiety disorder; Z78.9 Other specified health status; R53.83 Other fatigue; F33.42 Major depressive disorder, recurrent, in full remission; Z79.899 Other long term (current) drug therapy
CPT/HCPCS: 36415; 80053; 80061; 82306; 82607; 82728; 83735; 84443; 85025; 96127

== ENCOUNTER 2024-04-06 08:26 | Outpatient (AMB) | payer OTHER, SELFPAY ==
--- NOTE | 2024-04-06 08:45 | A.OFFPC_ITS ---
Intake Visit Reasons: Discuss Results Allergies egg Allergy (Unknown, Verified 04/06/24 08:45) Lump in Throa t seasonal Allergy (Unknown, Uncoded 03/11/23 15:29) Runny Nose, Itchy Eyes Medication List - Last Reconciled 04/06/24 by Jesus Corona MD bupropion HCl XL 150 mg PO DAILY cetirizine (Zyrtec) 10 mg PO DAILY PRN lorazepam 0.5 mg PO DAILY PRN norethindrone ac-eth estradiol 1.5-30 mg-mcg 1 tab PO DAILY Tobacco use date assessed: 04/06/24 Dental Screening Dental Screen Date: 04/06/24 Did you have a dental visit in the last 12 months?: Yes Did you have a dental problem in the last 6 months where you did not have access to dental care?: No Was dental information given to patient?: Patient has dentist HPI Discuss Results HPI Details patient wanted to discuss labs her b12 level came back above 1200 she has been taking multivitamin supplement daily for past 2 years after gastric sleeve surgery I would rec to stop supplement for 3 month and repeat labs again order placed [facility] Medical History Back pain Anxiety GERD (gastroesophageal reflux disease) Depression Morbid obesity Surgical History History of sleeve gastrectomy Hx of wisdom tooth extraction Hx of cholecystectomy Family History Mother Spinal stenosis Ovarian cancer Father No problems noted. Brother No problems noted. Sister No problems noted. Son No problems noted. Daughter No problems noted. Other Mental health disorder Substance use disorder Social History Housing: Apartment Are you a primary career technical education instructor to a significant other at home: No Do you presently have visiting nurse or other home services: No Alcohol intake: current Alcohol intake frequency: holidays/special occasions only Patient Tobacco Use Status: Never used Tobacco e-Cigarette/Vaping Use: Never Used Second Hand Smoke Exposure: Yes service: No Current occupational status: employed Cognitive needs: No Hearing needs: No Vision needs: Yes (contacts) Questionnaire Thrive Questionnaire Date Thrive assessed: 04/04/24 AUDIT C Alcohol Use Questionnaire (AUDIT-C) 1. How often do you have a drink containing alcohol?: 2-4 times a month 2. How many drinks containing alcohol do you have on a typical day when you are drinking?: 1 or 2 3. How often do you have six or more drinks on one occasion?: Never Total Score: 2 Score Reviewed/Action Taken: Yes LENNY-7 AMB Questionnaire LENNY-7 Date LENNY - 7 assessed: 04/04/24 Source: Developed by Drs. Kirk Zapata, Carina Briscoe, Sandeep Oglesby and colleagues, with an educational kristin from [employer]. Review of Systems Const All systems reviewed & are unremarkable except as noted in HPI and below Physical exam (Primary Care) Tobacco/Smoking Status: Tobacco use Status Tobacco use date assessed 04/06/24 04/06/24 08:46 Patient Tobacco Use Status Never used Tobacco 04/06/24 08:46 e-Cigarette/Vaping Use Never Used 04/06/24 08:46 Thrive Assessment: Date of Thrive Assessment Date Thrive assessed 04/04/24 04/06/24 08:46 Telehealth Telehealth Telehealth Platform: [employer] Location of provider rendering services: practice address Location of patient: address on file Patient Identification confirmed using: Name, : Yes Telehealth method: voice only Patient verbally consented to treatment: Yes Patient verbally consented to billing insurance company: Yes Patient informed of any privacy concerns related to visit: Yes Minutes spent on Phone/Video with Pt.: 12 Coding Level of Care Code Tele Est Pt Level 3 (04260) Diagnoses Elevated vitamin B12 level R79.89 History of gastric surgery Z98.890 Assessment & Plan Assessment & Plan (1) Elevated vitamin B12 level: Code(s): R79.89 - Other specified abnormal findings of blood chemistry Category: Medical (2) History of gastric surgery: Code(s): Z98.890 - Other specified postprocedural states Category: Surgical Plan patient wanted to discuss labs her b12 level came back above 1200 she has been taking multivitamin supplement daily for past 2 years after gastric sleeve surgery I would rec to stop supplement for 3 month and repeat labs again order placed Orders: Orders Vitamin B12 Today R79.89 - Other specified abnormal findings of blood chemistry, Z98.890 - Other specified postprocedural states
== END 2024-04-06 11:02 | disposition home or self-care (01) ==
LOC: HO.HMCC 08:26
PROVIDERS: PCP Internal Medicine; Visit Provider Internal Medicine
DX: R79.89 Other specified abnormal findings of blood chemistry (principal); Z98.890 Other specified postprocedural states

== ENCOUNTER → 2024-04-06 08:26 | Outpatient (BNVA) | payer OTHER, SELFPAY | PROVIDERS: PCP Internal Medicine; Visit Provider Internal Medicine ==

== ENCOUNTER 2024-08-02 09:41 | Outpatient (AMB) | payer OTHER, SELFPAY ==
--- NOTE | 2024-08-02 09:35 | A.OFFVIS_ITS ---
VS Expanded 08/02/24 09:37 Height 4 ft 11 in Weight 122 lb BMI 24.6 Intake Visit Reasons: TELEPHONE PO LSG 05/22/21 THIGHPLASTY Allergies egg Allergy (Unknown, Verified 04/06/24 08:45) Lump in Throa t seasonal Allergy (Unknown, Uncoded 03/11/23 15:29) Runny Nose, Itchy Eyes Medication List - Last Reconciled 08/02/24 by ANISH Cain bupropion HCl XL 150 mg PO DAILY cetirizine (Zyrtec) 10 mg PO DAILY PRN lorazepam 0.5 mg PO DAILY PRN norethindrone ac-eth estradiol 1.5-30 mg-mcg 1 tab PO DAILY HPI Comments Details: This a 36 yo female who is s/p LSG 05/22/21. Presents for 3 year 2 month year post op visit. Weight today is 122 pounds, with a BMI of 24.6. There has been an 82 pound weight loss, (initial weight 204.2 pounds) since starting the program on 01/29/21 reflecting a 39% total body weight loss. Pt reports she previously had a panniculectomy at [facility] 05/2023. Pt reports excess skin of upper thighs that is bothersome. She notices excess skin rubs together and chafes, particularly when she wears shorts in the summer. She has to wear leggings or pants at all times to prevent chafing but this is very uncomfortable in the summer in hotter weather. This also results in her having to clean the area more frequently than typical due to excess buildup of sweat and moisture. She finds that walking has become more difficult due to skin rubbing together, is painful and skin moves around a lot during movement which is very uncomfortable. The skin is also heavy which causes discomfort. Has tried topical OTC treatments like deodorant to prevent chafing but this has not completely resolved the problem. [facility] Medical History Back pain Anxiety GERD (gastroesophageal reflux disease) Depression Morbid obesity Surgical History History of sleeve gastrectomy Hx of wisdom tooth extraction Hx of cholecystectomy Family History Mother Spinal stenosis Ovarian cancer Father No problems noted. Brother No problems noted. Sister No problems noted. Son No problems noted. Daughter No problems noted. Other Mental health disorder Substance use disorder Social History Housing: Apartment Are you a primary managed care manager to a significant other at home: No Do you presently have visiting nurse or other home services: No Alcohol intake: current Alcohol intake frequency: holidays/special occasions only Patient Tobacco Use Status: Never used Tobacco e-Cigarette/Vaping Use: Never Used Second Hand Smoke Exposure: Yes service: No Current occupational status: employed Cognitive needs: No Hearing needs: No Vision needs: Yes (contacts) Telehealth Telehealth Telehealth Platform: Telephone Location of provider rendering services: other Location of patient: address on file Patient Identification confirmed using: Name, : Yes Telehealth method: voice only Patient verbally consented to treatment: Yes Patient verbally consented to billing insurance company: Yes Patient informed of any privacy concerns related to visit: Yes Minutes spent on Phone/Video with Pt.: 16 Assessment & Plan Assessment & Plan (1) S/P laparoscopic sleeve gastrectomy: Code(s): Z98.84 - Bariatric surgery status Category: Surgical (2) Excess skin: Code(s): L98.7 - Excessive and redundant skin and subcutaneous tissue Category: Medical Plan Pt has done very well with weight loss and has achieved a healthy BMI. She is experiencing issues of excess skin of upper thighs resulting in painful chafing/skin irritation, requiring the use of special clothing and more frequent cleaning. In addition, the excess skin is causing discomfort during activites of daily living such as walking. RTC 4-6 weeks to monitor excess skin issues. In person visit for physical exam. I spent a total of 30 minutes reviewing/updating records, examining the patient and counseling the patient on weight management as detailed above.
[2024-08-02 09:37] VITALS: BMI 24.6
== END 2024-08-02 09:57 | disposition home or self-care (01) ==
LOC: HO.HBS 09:41
PROVIDERS: PCP Internal Medicine; Visit Provider Physician Assistant Surgical
DX: L98.7 Excessive and redundant skin and subcutaneous tissue (principal); Z90.3 Acquired absence of stomach [part of]; Z98.84 Bariatric surgery status
CPT/HCPCS: 99214

== ENCOUNTER → 2024-08-02 09:41 | Outpatient (BNVA) | payer OTHER, SELFPAY | PROVIDERS: PCP Internal Medicine; Visit Provider Physician Assistant Surgical ==

== ENCOUNTER 2024-08-23 14:07 | Outpatient (REF) | payer OTHER, SELFPAY ==
[2024-08-23 16:15] LABS: MANUAL DIFF FLAG NO
[2024-08-23 16:23] LABS: Basophils Absolute Auto 0.1 X10*3/uL (0.0-0.2); Eosinophils Absolute Auto 0.2 X10*3/uL (0.0-0.4); Eosinophils Percent Auto 1.8 % (0-4); Hematocrit 42.2 % (37.0-47.0); Hemoglobin 13.8 g/dl (12.0-16.0); Imm Gran Abs Auto 0.02 X10*3/uL (0.00-0.03); Imm Gran Pct Auto 0.2 % (0.0-0.4); Lymphocytes Percent Auto 35.5 % (20-40); Mean Corpuscular HGB Conc 32.7 g/dl (31.0-35.0); Mean Corpuscular Hemoglobin 29.4 pg (27.0-33.0); Mean Corpuscular Volume 89.8 fL (80.0-98.0); Mean Platelet Volume 10.2 fL (9.4-12.3); Monocytes Absolute Auto 0.6 X10*3/uL (0.1-1.2); Monocytes Percent Auto 6.5 % (2-11); Neutrophils Absolute Auto 4.6 x10*3/uL (2.0-8.3); Platelet Count 293 X10*3/uL (160-400); Red Cell Distribution Width 13.5 % (11.0-16.0); White Blood Count 8.4 X10*3/uL (4.8-10.8)
[2024-08-23 17:07] LABS: Folate 7.7 ng/mL (> or = 4.0); Vitamin B12 344 pg/mL (200-900)
[2024-08-23 17:29] LABS: Alanine Aminotransferase 11 U/L (0-31); Albumin Level 4.2 g/dL (3.5-5.0); Alkaline Phosphatase 58 U/L (39-117); Anion Gap 11 (12-20); Aspartate Amino Transferase 20 U/L (5-31); Bilirubin Total 0.3 mg/dL (0.0-1.0); Blood Urea Nitrogen 16 mg/dL (9-16); Calcium 9.2 mg/dL (8.4-10.2); Carbon Dioxide 24 mmol/L (22-29); Chloride 109 mmol/L (96-108); Estimated Glomerular Filt Rate > 60; Glucose Random 81 mg/dL (60-115); Potassium 4.4 mmol/L (3.3-5.1); Sodium 140 mmol/L (135-145); Total Protein 7.6 g/dL (6.5-8.0)
[2024-08-23 17:38] LABS: Ferritin 22 ng/mL (10-122)
[2024-08-27 14:53] LABS: Vitamin D 25-OH, D2 12 ng/mL; Vitamin D 25-OH, D3 29 ng/mL; Vitamin D 25-OH, Total 41 ng/mL (30-100)
== END 2024-08-23 14:08 | disposition home or self-care (01) ==
LOC: HO.HMGCLDS 14:07
PROVIDERS: PCP Internal Medicine; Visit Provider Internal Medicine
DX: R53.83 Other fatigue (principal); R20.0 Anesthesia of skin; R79.89 Other specified abnormal findings of blood chemistry
CPT/HCPCS: 36415; 80053; 82306; 82607; 82728; 82746; 85025

== ENCOUNTER 2025-04-11 12:30 | Outpatient (AMB) | payer OTHER, SELFPAY ==
[2025-04-11 12:32] VITALS: BP 112/70; PULSE 86; O2SAT 98; BMI 25.4
--- NOTE | 2025-04-11 12:32 | MHC.PC.OV ---
Vital Signs 04/11/25 12:32 Height 4 ft 11 in Weight 126 lb BMI 25.4 BP 112/70 Blood Pressure Location Lt brachial Position Sitting Pulse 86 Pulse Source Pulse Oximeter Pulse Oximetry (%) 98 Intake Visit Reasons: Annual PE Allergies egg Allergy (Unknown, Verified 04/11/25 12:32) Lump in Throa t seasonal Allergy (Unknown, Uncoded 03/11/23 15:29) Runny Nose, Itchy Eyes Medication List - Last Reconciled 04/11/25 by Jesus Corona MD bupropion HCl XL 150 mg PO DAILY cetirizine (Zyrtec) 10 mg PO DAILY PRN lorazepam 0.5 mg PO DAILY PRN norethindrone ac-eth estradiol 1.5-30 mg-mcg 1 tab PO DAILY Tobacco use date assessed: 04/11/25 Dental Screening Dental Screen Date: 04/11/25 Did you have a dental visit in the last 12 months?: Yes Did you have a dental problem in the last 6 months where you did not have access to dental care?: No Was dental information given to patient?: Patient has dentist HPI Annual PE HPI Details History of Present Illness The patient is a 39-year-old female presenting for an annual physical examination and to address ongoing headaches. Migraine and Tension Headache: - The patient reports experiencing two different types of frequent headaches. - She describes tension headaches, which she attributes to working at a computer, that are sometimes relieved by Tylenol. - She also reports headaches that start on one side of her face, behind the eye, which force her to stop working because she cannot look at the computer screen. - These unilateral headaches do not respond to Tylenol, and she has a family history of migraines in her mother and sister. - The patient has been taking Tylenol approximately four days a week for her headaches. - She notes that pain in her neck can also trigger migraines. Fatigue: - The patient reports always feeling tired. - She previously took vitamin B12 but stopped because her levels were high. - Her last B12 level in August was 344, which is within the normal range. Anxiety: Treated with psych med prescriber - The patient reports her anxiety is not bad and that her medications are helping. - She infrequently needs to take lorazepam. - Her bupropion dose was increased last year, which made a significant positive difference. - She is followed by a prescriber for her anxiety medications. Allergic Rhinitis: - The patient has a history of allergies that cause sinus issues, which she feels also affect the right side of her head. - She recently switched from taking Zyrtec to Yanique and believes it may be helping, though it is difficult to say as seasonal allergies are decreasing. Medical History: - Anxiety, managed with bupropion and as-needed lorazepam. - Allergic rhinitis. - History of elevated vitamin B12. Social History: - Employment: The patient works from home. - Substance use: The patient reports frequent use of ajgl-yxj-mcmkoqj Tylenol for headaches. - Family planning: The patient is on control. Family History: - Mother and sister have migraines. - Mother and sister have thalassemia. - Denies family history of pernicious anemia. Health Maintenance - This visit is for an annual physical examination. - The patient's last EXPORT TRAFFIC DEPARTMENT MANAGER visit was in January of this year and included an exam but no Pap smear. - Breast exams are performed by her EXPORT TRAFFIC DEPARTMENT MANAGER. - The patient received an influenza vaccine last week. [place] [facility] Care - The patient sees an EXPORT TRAFFIC DEPARTMENT MANAGER at [facility] EXPORT TRAFFIC DEPARTMENT MANAGER. - She sees a separate prescriber for her anxiety medication. Medications - Bupropion for anxiety. - Lorazepam as needed for anxiety. - Tylenol taken approximately four days per week for headaches. - Unspecified control. - Yanique for allergies (recently switched from Zyrtec) Patient Instructions - You will start two new medications for your headaches. - Take one amitriptyline 10 mg tablet every night to help prevent headaches. - Take one sumatriptan tablet as soon as you feel a migraine coming on. Do not take more than one tablet a day. - Stop taking Tylenol so frequently, as it can be hard on your liver. - Continue to keep your computer screen at a proper height to avoid neck strain. - Go to the lab to have fasting blood work done. - Watch for any side effects from the new medications, such as lip swelling, rash, nausea, vomiting, or diarrhea. Stop taking the medication and call the office if your symptoms get worse. - Schedule a follow-up appointment in about two months to review your lab results and see how the new medications are working. Review of Systems - General: No fever no chills - Neurological: no dizziness - Ear nose throat: No sore throat no hearing difficulty no ear pain - Cardiovascular: No syncope, no chest pain, no palpitations - Gastrointestinal: No nausea vomiting or diarrhea - Endocrine: No polyuria polydipsia no heat intolerance - Genitourinary: No dysuria - Skin: No new complaints Physical Exam General: Cooperative, healthy appearing, comfortable, no acute distress Orientation: Patient oriented x3 Head: Normal to inspection Ears: Within normal limit visually Nose: Normal external nose present Face and sinus: Normal facial exam Eyes: Appearance normal, extraocular movement intact pupils reactive Neck: Normal visual inspection and supple Respiratory: Normal respiratory effort and able to speak in complete sentences. Clear to auscultation, no stridor Cardiovascular: S1 and S2 RRR GI: Normal to inspection. Soft to palpation and nontender Skin: Turgor normal, no acute findings Neuro: Patient oriented x3, motor sensory intact, balance intact, tandem pass Extremities: Normal to inspection . [facility] Medical History Back pain Anxiety GERD (gastroesophageal reflux disease) Depression Morbid obesity Surgical History History of sleeve gastrectomy Hx of wisdom tooth extraction Hx of cholecystectomy Family History Mother Spinal stenosis Ovarian cancer Father No problems noted. Brother No problems noted. Sister No problems noted. Son No problems noted. Daughter No problems noted. Other Mental health disorder Substance use disorder Social History Housing: Apartment Are you a primary medical care evaluation specialist to a significant other at home: No Do you presently have visiting nurse or other home services: No Alcohol intake: current Alcohol intake frequency: holidays/special occasions only Patient Tobacco Use Status: Never used Tobacco e-Cigarette/Vaping Use: Never Used Second Hand Smoke Exposure: Yes service: No Current occupational status: employed Cognitive needs: No Hearing needs: No Vision needs: Yes (contacts) Questionnaire PHQ-9 Over the last 2 weeks, how often have you been bothered by any of the following problems? 1. Little interest or pleasure in doing things: more than half the days 2. Feeling down, depressed, or hopeless: several days 3. Trouble falling or staying asleep, or sleeping too much: several days 4. Feeling tired or having little energy: several days 5. Poor appetite or overeating: not at all 6. Feeling bad about yourself - or that you are a failure or have let yourself or your family down: not at all 7. Trouble concentrating on things, such as reading the newspaper or watching television: not at all 8. Moving or speaking so slowly that other people could have noticed. Or the opposite - being so fidgety or restless that you have been moving around a lot more than usual: not at all 9. Thoughts that you would be better off or of hurting yourself in some way: not at all Total score: 5 Depression Screening Interpretation: Negative Depression Screening Done: Yes 28863 - PHQ-9 Billing: Yes Source: Developed by Drs. Kirk Zapata, Carina Briscoe, Sandeep Oglesby and colleagues, with an educational kristin from [employer]. Thrive Questionnaire Date Thrive assessed: 04/11/25 I am a: Patient What is your living situation today?: I have a steady place to live Within the past 12 months, did the food you bought not last and you didn't have the money to get more?: Never true Within the past 12 months, did you worry whether your food would run out before you got money to buy more?: Never true Do you have trouble paying for medicines?: No Do you have trouble getting transportation to medical appointments?: No Do you have trouble paying your heating and electricity bill?: I choose not to answer this question Do you have trouble taking care of your child, family member or friend?: No Do you have trouble with day-to-day activities such as bathing, preparing meals, shopping, managing finances, etc.?: No Are you currently unemployed and looking for a job?: No Are you interested in more education?: No Please select the resources that you would like help with: Utilities Currently or been in a relationship where the following occur: No concerns reported THRIVE Score: 0 AUDIT C Alcohol Use Questionnaire (AUDIT-C) 1. How often do you have a drink containing alcohol?: 2-4 times a month 2. How many drinks containing alcohol do you have on a typical day when you are drinking?: 1 or 2 3. How often do you have six or more drinks on one occasion?: Never Total Score: 2 Score Reviewed/Action Taken: Yes LENNY-7 AMB Questionnaire LENNY-7 Date LENNY - 7 assessed: 04/11/25 Feeling nervous, anxious, or on edge: 0 = Not at all Not being able to stop or control worryin = Several days Worrying too much about different things: 1 = Several days Trouble relaxin = Several days Being so restless that it is hard to sit still: 2 = More than half the days Becoming easily annoyed or irritable: 1 = Several days Feeling afraid as if something awful might happen: 0 = Not at all Total LENNY-7 score (0-4 normal; 5-9 mild; 10-14 moderate; 15-21 severe): 6 Source: Developed by Drs. Kirk Zapata, Carina Briscoe, Sandeep Oglesby and colleagues, with an educational kristin from [employer]. LENNY-7 Assessment Billing LENNY-7 Assessment Tool: LENNY-7 Assessment 66083 Physical exam (Primary Care) Vital Signs: Last Vital Signs Pulse 86 04/11/25 12:32 BP 112/70 04/11/25 12:32 Pulse Ox 98 04/11/25 12:32 BMI result Body Mass Index 25.4 Tobacco/Smoking Status: Tobacco use Status Tobacco use date assessed 04/11/25 04/11/25 12:33 Patient Tobacco Use Status Never used Tobacco 04/11/25 12:33 e-Cigarette/Vaping Use Never Used 04/11/25 12:33 PHQ-9: PHQ-9 Score PHQ-9: Total score 5 04/11/25 13:01 Depression Screening Interpretation: Negative Thrive Assessment: Date of Thrive Assessment Date Thrive assessed 04/11/25 04/11/25 12:33 Currently or been in a relationship where the following occur: No concerns reported Coding Level of Care Code Est Pt Level 4 (14395) Est Pt Prev Care 18-39y(06846) Diagnoses Encounter for general adult medical examination with abnormal findings Z00.01 Headache syndrome G44.89 Tired R53.83 Cervicalgia of fqcmpros-htgwmvy-vffwu region M54.2 Uses control Z78.9 Vitamin B12 deficiency E53.8 Additional Codes LENNY-7 Assessment Billing - LENNY-7 Assessment Tool: LENNY-7 Assessment 96344 ([id number]) PHQ-9 - 45100 - PHQ-9 Billing: Yes ([id number]) Assessment & Plan Assessment & Plan (1) Encounter for general adult medical examination with abnormal findings: Code(s): Z00.01 - Encounter for general adult medical examination with abnormal findings Category: Medical (2) Headache syndrome: Code(s): G44.89 - Other headache syndrome Category: Medical (3) Tired: Code(s): R53.83 - Other fatigue Category: Medical (4) Cervicalgia of ftmfckks-lhgtnnb-hizwr region: Code(s): M54.2 - Cervicalgia Category: Medical (5) Uses control: Code(s): Z78.9 - Other specified health status Category: Social Hx (6) Vitamin B12 deficiency: Code(s): E53.8 - Deficiency of other specified B group vitamins Category: Medical Plan Migraine and Tension Headache: - The patient reports experiencing two different types of frequent headaches. - She describes tension headaches, which she attributes to working at a computer, that are sometimes relieved by Tylenol. - She also reports headaches that start on one side of her face, behind the eye, which force her to stop working because she cannot look at the computer screen. - These unilateral headaches do not respond to Tylenol, and she has a family history of migraines in her mother and sister. - The patient has been taking Tylenol approximately four days a week for her headaches. - She notes that pain in her neck can also trigger migraines. Fatigue: - The patient reports always feeling tired. - She previously took vitamin B12 but stopped because her levels were high. - Her last B12 level in August was 344, which is within the normal range. Anxiety: Treated with psych med prescriber - The patient reports her anxiety is not bad and that her medications are helping. - She infrequently needs to take lorazepam. - Her bupropion dose was increased last year, which made a significant positive difference. - She is followed by a prescriber for her anxiety medications. Allergic Rhinitis: - The patient has a history of allergies that cause sinus issues, which she feels also affect the right side of her head. - She recently switched from taking Zyrtec to Yanique and believes it may be helping, though it is difficult to say as seasonal allergies are decreasing. Medical History: - Anxiety, managed with bupropion and as-needed lorazepam. - Allergic rhinitis. - History of elevated vitamin B12. Social History: - Employment: The patient works from home. - Substance use: The patient reports frequent use of ygnc-edq-yjvrlyt Tylenol for headaches. - Family planning: The patient is on control. Family History: - Mother and sister have migraines. - Mother and sister have thalassemia. - Denies family history of pernicious anemia. Health Maintenance - This visit is for an annual physical examination. - The patient's last EXPORT TRAFFIC DEPARTMENT MANAGER visit was in January of this year and included an exam but no Pap smear. - Breast exams are performed by her EXPORT TRAFFIC DEPARTMENT MANAGER. - The patient received an influenza vaccine last week. [place] [facility] Care - The patient sees an EXPORT TRAFFIC DEPARTMENT MANAGER at [facility] EXPORT TRAFFIC DEPARTMENT MANAGER. - She sees a separate prescriber for her anxiety medication. Medications - Bupropion for anxiety. - Lorazepam as needed for anxiety. - Tylenol taken approximately four days per week for headaches. - Unspecified control. - [facility] for allergies ([facility] Patient Instructions - You will start two new medications for your headaches. - Take one amitriptyline 10 mg tablet every night to help prevent headaches. - Take one sumatriptan tablet as soon as you feel a migraine coming on. Do not take more than one tablet a day. - Stop taking Tylenol so frequently, as it can be hard on your liver. - Continue to keep your computer screen at a proper height to avoid neck strain. - Go to the lab to have fasting blood work done. - Watch for any side effects from the new medications, such as lip swelling, rash, nausea, vomiting, or diarrhea. Stop taking the medication and call the office if your symptoms get worse. - Schedule a follow-up appointment in about two months to review your lab results and see how the new medications are working. Orders: Orders Ferritin Today E53.8 - Deficiency of other specified B group vitamins, G44.89 - Other headache syndrome, R53.83 - Other fatigue, Z00.01 - Encounter for general adult medical examination with abnormal findings, Z78.9 - Other specified health status Folate Today E53.8 - Deficiency of other specified B group vitamins, G44.89 - Other headache syndrome, R53.83 - Other fatigue, Z00.01 - Encounter for general adult medical examination with abnormal findings, Z78.9 - Other specified health status Complete Blood Count Auto Diff Today E53.8 - Deficiency of other specified B group vitamins, G44.89 - Other headache syndrome, R53.83 - Other fatigue, Z00.01 - Encounter for general adult medical examination with abnormal findings, Z78.9 - Other specified health status Comprehensive [place]. Panel Fast Today E53.8 - Deficiency of other specified B group vitamins, G44.89 - Other headache syndrome, R53.83 - Other fatigue, Z00.01 - Encounter for general adult medical examination with abnormal findings, Z78.9 - Other specified health status TSH reflex Free T4 Today E53.8 - Deficiency of other specified B group vitamins, G44.89 - Other headache syndrome, R53.83 - Other fatigue, Z00.01 - Encounter for general adult medical examination with abnormal findings, Z78.9 - Other specified health status Lipid Panel Today E53.8 - Deficiency of other specified B group vitamins, G44.89 - Other headache syndrome, R53.83 - Other fatigue, Z00.01 - Encounter for general adult medical examination with abnormal findings, Z78.9 - Other specified health status Vitamin D 25-OH (D2 and D3) Today E53.8 - Deficiency of other specified B group vitamins, G44.89 - Other headache syndrome, R53.83 - Other fatigue, Z00.01 - Encounter for general adult medical examination with abnormal findings, Z78.9 - Other specified health status Vitamin B12 Today E53.8 - Deficiency of other specified B group vitamins, G44.89 - Other headache syndrome, R53.83 - Other fatigue, Z00.01 - Encounter for general adult medical examination with abnormal findings, Z78.9 - Other specified health status Intrinsic Factor Antibodies Today E53.8 - Deficiency of other specified B group vitamins Medications: New sumatriptan succinate 50 mg PO .qd PRN 14 tabs 0RF migraine headache 30 days amitriptyline 10 mg PO BEDTIME 30 tabs 1RF
== END 2025-04-11 13:04 | disposition home or self-care (01) ==
LOC: HO.HMCC 12:30
PROVIDERS: PCP Internal Medicine; Visit Provider Internal Medicine
DX: Z00.01 Encounter for general adult medical examination with abnormal findings (principal); G44.89 Other headache syndrome; R53.83 Other fatigue; M54.2 Cervicalgia; Z78.9 Other specified health status; E53.8 Deficiency of other specified B group vitamins

== ENCOUNTER → 2025-04-11 12:30 | Outpatient (BNVA) | payer OTHER, SELFPAY | PROVIDERS: PCP Internal Medicine; Visit Provider Internal Medicine | DX: Z00.01 Encounter for general adult medical examination with abnormal findings (principal); R53.83 Other fatigue; F41.9 Anxiety disorder, unspecified; J30.9 Allergic rhinitis, unspecified; G44.89 Other headache syndrome; M54.2 Cervicalgia; E53.8 Deficiency of other specified B group vitamins | CPT/HCPCS: 96127 ==

== ENCOUNTER 2025-04-21 10:50 | Outpatient (REF) | payer OTHER, SELFPAY ==
[2025-04-21 13:39] LABS: MANUAL DIFF FLAG NO
[2025-04-21 13:43] LABS: Hematocrit 41.2 % (37.0-47.0); Hemoglobin 14.9 g/dl (12.0-16.0); Imm Gran Abs Auto 0.01 X10*3/uL (0.00-0.03); Imm Gran Pct Auto 0.2 % (0.0-0.4); Lymphocytes Absolute Auto 2.6 X10*3/uL (1.2-4.9); Mean Corpuscular HGB Conc 36.2 g/dl (31.0-35.0); Mean Corpuscular Hemoglobin 32.1 pg (27.0-33.0); Mean Corpuscular Volume 88.8 fL (80.0-98.0); NRBC Abs Auto 0.000 X10*3/uL (0.0-0.012); NRBC Pct Auto 0.0 /100WBC (0.0-0.2); Platelet Count 348 X10*3/uL (160-400); Red Blood Count 4.64 X10*6/uL (4.20-5.50); White Blood Count 6.1 X10*3/uL (4.8-10.8)
[2025-04-21 13:57] LABS: Alanine Aminotransferase 13 U/L (0-31); Albumin Level 4.2 g/dL (3.5-5.0); Alkaline Phosphatase 50 U/L (39-117); Anion Gap 15 (12-20); Aspartate Amino Transferase 22 U/L (5-31); Blood Urea Nitrogen 16 mg/dL (9-16); Calcium 9.6 mg/dL (8.4-10.2); Carbon Dioxide 25 mmol/L (22-29); Chloride 107 mmol/L (96-108); Cholesterol 210 mg/dL (<200); Estimated Glomerular Filt Rate > 60; HDL Cholesterol 104 mg/dL (>40); Potassium 4.5 mmol/L (3.3-5.1); Sodium 142 mmol/L (135-145); Total Protein 7.0 g/dL (6.5-8.0); Triglycerides 84 mg/dL (<150)
[2025-04-21 14:12] LABS: Ferritin 19 ng/mL (10-122)
[2025-04-21 14:30] LABS: Folate 7.1 ng/mL (> or = 4.0); Vitamin B12 263 pg/mL (200-900)
[2025-04-25 20:08] LABS: Intrinsic Factor Antibodies Negative (Negative)
[2025-04-27 06:14] LABS: Vitamin D 25-OH, D2 <4 ng/mL; Vitamin D 25-OH, D3 34 ng/mL; Vitamin D 25-OH, Total 34 ng/mL (30-100)
== END 2025-04-21 10:51 | disposition home or self-care (01) ==
LOC: HO.HMGCLDS 10:50
PROVIDERS: PCP Internal Medicine; Visit Provider Internal Medicine
DX: Z00.01 Encounter for general adult medical examination with abnormal findings (principal); Z01.84 Encounter for antibody response examination; E53.8 Deficiency of other specified B group vitamins; R53.83 Other fatigue; G44.89 Other headache syndrome; Z78.9 Other specified health status; Z13.6 Encounter for screening for cardiovascular disorders; Z13.21 Encounter for screening for nutritional disorder
CPT/HCPCS: 36415; 80053; 80061; 82306; 82607; 82728; 82746; 84443; 85025; 86340